=== PATIENT | male | born 1935 | race Caucasian/White ===

== ENCOUNTER 2016-10-10 11:25 | Inpatient (IN) | payer MEDICARE, BC ==
[~2016-10-10] VITALS: Ht 180.3 cm; Wt 128.8 kg
[~2016-10-10 11:25] MED LIST: ASPI325T14 PO; ASPI325T17 PO; CARV6.25 PO; CARV6.252 PO; CHOL200042 PO; CIPR500T86 PO; ENAL10TA PO; ENAL1TAB5 PO; ENAL20TA PO; FLUC100T PO; FURO-80 PO; FURO40TA4 PO; GLYB2.5T2 PO; HYDR12.58 PO; KETO15CR2 TP; METF10002 PO; MULT-632 PO; POLY17PO5 PO; POTA10TA PO; POTA10TA6 PO; SIMV40TA3 PO; TAMS-14 PO; TERA5CAP3 PO; TRAZ50TA18 PO
--- NOTE | 2016-10-10 12:30 | NUR ---
ADMIT DA FROM DR SWARTZ FOR CHF, SOB NOTED WITH EXERTION.SERVED SANDWICH TRAY. BG 127 AT THIS TIME. PT SITTING ON SIDE OF BED EATING. ASSESSMENT COMPLETE CHARTED. DENIES FURTHER NEEDS AT THIS TIME.
[2016-10-10 12:42] VITALS: BP 120/71
[2016-10-10 12:58] LABS: BASOPHIL # 0.1 10^3/uL (0.0-0.1); BASOPHIL % 0.6 % (0.0-0.2); EOSINOPHIL # 0.8 10^3/uL (0.0-0.2); EOSINOPHIL % 7.6 % (0.0-5.0); HEMOGLOBIN 12.5 g/dL (13.9-16.3); LYMPHOCYTES # 1.6 10^3/uL (1.0-4.8); LYMPHOCYTES % 15.1 % (24.0-44.0); MEAN CELL HGB 31.4 pg (26-34); MEAN CELL HGB CONCENTRATION 33.2 g/dL (33-37); MEAN CORP VOLUME 94.7 fL (78-100); MEAN PLATELET VOLUME 8.8 fL (7.8-11.0); MONOCYTES # 0.8 10^3/uL (0.3-0.8); MONOCYTES % 7.5 % (5.0-12.0); NEUTROPHIL # 7.1 10^3/uL (1.8-7.7); NEUTROPHILS % 68.9 % (41.0-85.0); RED CELL DISTRIBUTION WIDTH 13.6 % (11.5-14.5); WHITE BLOOD CELL 10.3 10^3/uL (4.5-11.0)
[2016-10-10] MEDS ORDERED: NORCO 5MG PO PRN (13:00)
[2016-10-10] MEDS ORDERED: LASIX IV ONE ×3 (13:00)
[2016-10-10] MEDS ORDERED: NS IV ONE ×2 (13:00)
--- NOTE | 2016-10-10 14:09 | DIREP ---
PROCEDURE:CHEST 1 VIEW COMPARISON:[facility], CR, XRAY CHEST SINGLE VW, 03/02/2016, 12:42 PM. INDICATIONS:SOB FINDINGS: LUNGS/PLEURA:Apices are obscured by the patient's chin. Mild interstitial thickening bilaterally. Bilateral small effusions. VASCULATURE:Normal. Unremarkable pulmonary vasculature. CARDIAC:Normal. No cardiac silhouette abnormality or cardiomegaly. MEDIASTINUM:Atherosclerotic aorta with no visible aneurysm. BONES:Normal. No fracture or visible bony lesion. OTHER:Negative. CONCLUSION:Mild volume overload pattern. Correlate with clinical findings. Dictated by: Justino Ramos M.D. on 10/10/2016 at 02:20 PM
[2016-10-10] MEDS: LOVENOX SQ SCH (14:42)
--- NOTE | 2016-10-10 14:43 | NUR ---
STATUS SITTING ON SIDE OF BED READING, EDUCATED PT ON ENOXAPARIN. ALSO GAVE PT WRITTEN EDUCATION.
--- NOTE | 2016-10-10 15:12 | NUR ---
MEDICATIONS PT STATES HE DOES NOT KNOW WHAT LIST OF MEDICATIONS HE TAKES BUT I HAVE PERMISSION TO CONTACT RENEE TO GET THAT LIST.
[2016-10-10] MEDS ORDERED: POLY17PO5 PO (15:25)
[2016-10-10 16:04] VITALS: BP 113/68
--- NOTE | 2016-10-10 18:58 | NUR ---
Report REPORT GIVEN [facility]
[2016-10-10 19:44] VITALS: BP 113/66
[2016-10-10] MEDS ORDERED: AMBIEN PO PRN (21:00)
[2016-10-10] MEDS: PEPCID PO SCH (21:02)
--- NOTE | 2016-10-10 22:36 | NUR ---
O2 PER NC AT 2l GIVEN , PT C/O SOB WHEN LYING BACK
[2016-10-11 00:33] VITALS: BP 119/66
[2016-10-11] MEDS ORDERED: TERA5CAP3 PO (02:14)
[2016-10-11 04:08] VITALS: BP 114/77
[2016-10-11 05:54] LABS: BILIRUBIN,URINE NEGATIVE (NEGATIVE); UROBILINOGEN,URINE NORMAL (NEGATIVE)
[2016-10-11 05:56] LABS: APPEARANCE,URINE CLEAR (CLEAR); UA COLOR YELLOW (YELLOW)
[2016-10-11 08:54] VITALS: BP 134/64
[2016-10-11] MEDS: LOVENOX SQ SCH (09:17)
[2016-10-11] MEDS: PEPCID PO SCH ×2 (09:17→20:37)
--- NOTE | 2016-10-11 09:21 | NUR ---
DISCHARGE PLANNING: SS VISITED WITH PT REGARDING DISCHARGE PLANNING. PT LIVES HOME ALONE DUE TO BEING A . PT USES A CANE TO ASSIST WITH AMBULATION, BUT HAS A WALKER IN THE HOME HE COULD USE IF HE NEEDED TO. PT HAS BEEN VERY INDEPENDENT AND DENIES NEEDING ADDITIONAL RESOURCES AT THIS TIME. SS PROVIDED EDUCATION REGARDING HH AND THEIR SCIENTIFIC PROCESS OPERATOR PROGRAMS. PT AT THIS TIME DOES NOT THINK HH WOULD BE BENEFICIAL. VERBAL REFUSAL GIVEN. PT SAFETY HANDOUT ADDRESSED, NO QUESTIONS ASKED, UNDERSTANDING VERBALIZED. SS TO CONTINUE TO MONITOR AND ASSIST WITH DISCHARGE PLANNING NEEDS. NO FURTHER NEEDS NOTED OR IDENTIFIED AT THIS TIME.
[2016-10-11] MEDS ORDERED: LASIX IV ONE (11:00)
[2016-10-11] MEDS ORDERED: NS IV ONE (11:00)
--- NOTE | 2016-10-11 11:13 | NUR ---
PT IN BED AT THIS TIME. PT DOES NOT C/O PAIN OR DISCOMFORT AT THIS TIME. LASIX DRIP TO BE STARTED
[2016-10-11] MEDS ORDERED: NS 250ML 250 ML IV ONE (11:56)
[2016-10-11] MEDS ORDERED: NS 250ML 250 ML ONE (11:58)
[2016-10-11 12:38] VITALS: BP 127/73
--- NOTE | 2016-10-11 13:12 | PRM.PN ---
Subjective Subjective Subjective Patient presented to the office 10/10 with a 25-pound weight gain over the last month. He reported orthopnea and progressive lower extremity edema as well as truncal edema. He reports being short of breath with inability to sleep for last five days. He is in acute decompensation of chronic congestive heart failure, with a known history of non-ischemic cardiomyopathy. Patient History: FH: breast cancer G8 SISTER No known health problems VTE VTE Risk Total Score: 4 VTE Risk Score VTE Risk: Score 0-1 = Low Risk (Aggressive mobilization; early ambulation; no VTE prophylaxis required) Score 2: Moderate Risk (Intermittent/Pneumatic Compression Device OR Lovenox/Heparin/Coumadin) Score 3-4: High Risk (Intermittent/Pneumatic Compression Device AND Lovenox/Heparin/Coumadin) Score > or =5: Highest Risk (Intermittent/Pneumatic Compression Device AND Lovenox/Heparin/Coumadin) Review of Systems Constitutional: No: Fever, Chills, Sweats, Weakness, Malaise, Other Eyes: No: Pain, Vision change, Conjunctivae inflammation, Eyelid inflammation, Other, Redness ENT: No: Ear pain, Ear discharge, Nose pain, Nose discharge, Nose congestion, Mouth pain, Mouth swelling, Throat pain, Throat swelling, Other Respiratory: Shortness of breath, SOB with excertion Cardiovascular: Orthopnea, Paroxysmal Noc. Dyspnea, Edema Gastrointestinal: Other (abdominal distention) Genitourinary: No Dysuria, No Frequency, No Incontinence, No Hematuria, No Retention, No Other Musculoskeletal: other (+2 lower extremity edema.) Allergies: Coded Allergies: No Known Drug Allergies (Verified Allergy, Mild, 12/10/15) Scheduled Aspirin (Aspirin Ec), 1 TAB PO DAILY, (Reported) Carvedilol (Carvedilol), 1 TAB PO BID, (Reported) Cholecalciferol (Vitamin D3) (D3-2000), 2,000 UNIT PO DAILY, (Reported) Furosemide (Lasix), 1 TAB PO DAILY, (Reported) Glyburide (Glyburide), 1 TAB PO DAILY, (Reported) Metformin Hcl (Metformin Hcl), 1 TAB PO BID, (Reported) Multivitamin (Multi Vitamin Daily), 1 EACH PO DAILY, (Reported) Polyethylene Glycol 3350 (Miralax), 1 PKT PO DAILY, (Reported) Potassium Chloride (K-Tab), 10 MEQ PO DAILY, (Reported) Terazosin Hcl (Terazosin Hcl), 5 MG PO HS, (Reported) Trazodone Hcl (Trazodone Hcl), 1 TAB PO HS, (Reported) Scheduled PRN Enalapril Maleate (Enalapril Maleate), 1 TAB PO DAILY PRN for HYPERTENSION, ( Reported) Discontinued Medications Simvastatin (Simvastatin), 1.5 TAB PO BIDAC, (Reported) Discontinued Reason: No Longer Taking Terazosin Hcl (Terazosin Hcl), 1 CAP PO HS, (Reported) Discontinued Reason: No Longer Taking Objective Vitals and I/O Vital Sign - Last 24 Hours 10/10/16 10/10/16 10/10/16 10/11/16 16:04 19:44 19:50 00:33 Temp 97.6 97.6 97.7 Pulse 70 62 67 Resp 18 18 18 B/P (MAP) 113/68 (83) 113/66 (82) 119/66 (83) Pulse Ox 96 97 97 O2 Delivery Room Air Room Air Room Air Room Air 10/11/16 10/11/16 10/11/16 10/11/16 04:08 08:54 09:20 09:30 Temp 97.6 97.6 Pulse 72 83 83 Resp 18 16 17 B/P (MAP) 114/77 (89) 134/64 (87) Pulse Ox 97 97 97 O2 Delivery Room Air Nasal [place] Room Air Nasal Cannula O2 Flow Rate 2.00 FiO2 28 10/11/16 10/11/16 11:54 12:38 Temp 97.6 Pulse 71 Resp 16 B/P (MAP) 134/64 127/73 (91) Pulse Ox 99 O2 Delivery Nasal [place] Intake and Output 10/10/16 10/10/16 10/11/16 15:00 23:00 07:00 Intake Total 340 ml Output Total 500 ml 600 ml Balance 340 ml -500 ml -600 ml Medication Reconciliation Scheduled Aspirin (Aspirin Ec), 1 TAB PO DAILY, (Reported) Carvedilol (Carvedilol), 1 TAB PO BID, (Reported) Cholecalciferol (Vitamin D3) (D3-2000), 2,000 UNIT PO DAILY, (Reported) Furosemide (Lasix), 1 TAB PO DAILY, (Reported) Glyburide (Glyburide), 1 TAB PO DAILY, (Reported) Metformin Hcl (Metformin Hcl), 1 TAB PO BID, (Reported) Multivitamin (Multi Vitamin Daily), 1 EACH PO DAILY, (Reported) Polyethylene Glycol 3350 (Miralax), 1 PKT PO DAILY, (Reported) Potassium Chloride (K-Tab), 10 MEQ PO DAILY, (Reported) Terazosin Hcl (Terazosin Hcl), 5 MG PO HS, (Reported) Trazodone Hcl (Trazodone Hcl), 1 TAB PO HS, (Reported) Scheduled PRN Enalapril Maleate (Enalapril Maleate), 1 TAB PO DAILY PRN for HYPERTENSION, ( Reported) Discontinued Medications Simvastatin (Simvastatin), 1.5 TAB PO BIDAC, (Reported) Discontinued Reason: No Longer Taking Terazosin Hcl (Terazosin Hcl), 1 CAP PO HS, (Reported) Discontinued Reason: No Longer Taking Assessment/Plan Assessment/Plan Assessment/Plan Acute on chronic systolic congestive heart failure Left ventricular failure Cardiomyopathy Essential hypertension - controlled on medication Hyperlipidemia Sleep apnea Type 2 diabetes mellitus. Has decrease in truncal edema and lower extremity edema, but there is no original nursing notes with weight for trend before today. TX: Lasix drip 60 mg in 100 ml over 10 hours. Continue other medications as before. Continue admission 24 hours. Follow Problems: Patient History: FH: breast cancer G8 SISTER No known health problems FE PERKINS NP Oct 11, 2016 13:12
[2016-10-11 16:17] VITALS: BP 124/77
--- NOTE | 2016-10-11 19:22 | NUR ---
REPORT REPORT GIVEN TO ONCOMING SHIFT
[2016-10-11 20:21] VITALS: BP 112/72
[2016-10-12 00:29] VITALS: BP 137/88
[2016-10-12 04:27] VITALS: BP 119/80
[2016-10-12 06:10] LABS: CALCIUM 9.3 mg/dL (8.4-10.5); CARBON DIOXIDE 28.4 mmol/L (20.0-32)
--- NOTE | 2016-10-12 06:30 | NUR ---
Report Received report and assumed care of pt
[2016-10-12 08:00] VITALS: BP 127/66
--- NOTE | 2016-10-12 08:20 | NUR ---
Dr. Silvina Cool at bedside. New orders received.
[2016-10-12] MEDS: LOVENOX SQ SCH (09:00)
[2016-10-12] MEDS: PEPCID PO SCH (09:00)
[2016-10-12] MEDS ORDERED: ASPI81TA52 PO (09:38)
[2016-10-12] MEDS ORDERED: TICA90TA PO (09:38)
--- NOTE | 2016-10-12 10:29 | PRM.DC ---
Discharge Summary Date of Arrival on Unit: Oct 12, 2015 Reason for Visit: Acute decompensation of congestive heart failure Additional Comments Admitted via the office on 10/10 with a 25-pound weight gain over a month, orthopnea, lower extremity and truncal edema. Patient History: FH: breast cancer G8 SISTER No known health problems History Present Illness: General: Alert, Oriented X3, Cooperative, No acute distress Lungs: Clear to auscultation Neuro: Normal gait, Normal speech, Normal tone Psych/Mental Status: Mental status NL, Mood NL Scheduled Aspirin (Aspirin Ec), 1 TAB PO DAILY, (Reported) Aspirin (Aspir-Low), 81 MG PO DAILY Carvedilol (Carvedilol), 1 TAB PO BID, (Reported) Cholecalciferol (Vitamin D3) (D3-2000), 2,000 UNIT PO DAILY, (Reported) Furosemide (Lasix), 1 TAB PO DAILY, (Reported) Glyburide (Glyburide), 1 TAB PO DAILY, (Reported) Metformin Hcl (Metformin Hcl), 1 TAB PO BID, (Reported) Multivitamin (Multi Vitamin Daily), 1 EACH PO DAILY, (Reported) Polyethylene Glycol 3350 (Miralax), 1 PKT PO DAILY, (Reported) Potassium Chloride (K-Tab), 10 MEQ PO DAILY, (Reported) Terazosin Hcl (Terazosin Hcl), 5 MG PO HS, (Reported) Ticagrelor (Brilinta), 90 MG PO BID Trazodone Hcl (Trazodone Hcl), 1 TAB PO HS, (Reported) Scheduled PRN Enalapril Maleate (Enalapril Maleate), 1 TAB PO DAILY PRN for HYPERTENSION, ( Reported) Discontinued Medications Simvastatin (Simvastatin), 1.5 TAB PO BIDAC, (Reported) Discontinued Reason: No Longer Taking Terazosin Hcl (Terazosin Hcl), 1 CAP PO HS, (Reported) Discontinued Reason: No Longer Taking Sepsis Evaluation @ Discharge Course Blood Pressure Systolic: 119 Blood Pressure Diastolic: 80 Blood Pressure Mean: 93 Notes Patient received several days' treatment with Lasix to diurese; patient has lost about 4 pounds, but his distal and central edema is significantly reduced, lungs are clear. Plan Problems: (1) Congestive heart failure (CHF) Permanent Comment: Acute on chronic systolic congestive heart failure Left ventricular failure Cardiomyopathy Essential hypertension - controlled on medication Last Edited By: Fe Rothman NP on Oct 12, 2016 10:27 Onset Date: ~ 09/20/2016 Status: Acute SNOMED: 49007348 Assessment & Plan: Continue Lasix 40 mg and potassium at home. Dicharge DX: Acute on chronic systolic congestive heart failure Discharge Disposition: Stable Problem Qualifiers (1) Congestive heart failure (CHF): Congestive heart failure type: systolic Congestive heart failure chronicity: acute on chronic Qualified Codes: I50.23 - Acute on chronic systolic ( congestive) heart failure FE ROTHMAN NP Oct 12, 2016 10:29
--- NOTE | 2016-10-12 10:32 | PRM.DC ---
Discharge Summary Date of Arrival on Unit: Oct 12, 2015 Reason for Visit: Acute decompensation of congestive heart failure Patient History: FH: breast cancer G8 SISTER No known health problems History Present Illness: General: Alert, Oriented X3, Cooperative HEENT: Atraumatic Neck: Supple Lungs: Clear to auscultation Heart: Regular rate Skin: No breakdown Neuro: Normal speech Psych/Mental Status: Mental status NL Scheduled Aspirin (Aspirin Ec), 1 TAB PO DAILY, (Reported) Carvedilol (Carvedilol), 1 TAB PO BID, (Reported) Cholecalciferol (Vitamin D3) (D3-2000), 2,000 UNIT PO DAILY, (Reported) Furosemide (Lasix), 1 TAB PO DAILY, (Reported) Glyburide (Glyburide), 1 TAB PO DAILY, (Reported) Metformin Hcl (Metformin Hcl), 1 TAB PO BID, (Reported) Multivitamin (Multi Vitamin Daily), 1 EACH PO DAILY, (Reported) Polyethylene Glycol 3350 (Miralax), 1 PKT PO DAILY, (Reported) Potassium Chloride (K-Tab), 10 MEQ PO DAILY, (Reported) Terazosin Hcl (Terazosin Hcl), 5 MG PO HS, (Reported) Trazodone Hcl (Trazodone Hcl), 1 TAB PO HS, (Reported) Scheduled PRN Enalapril Maleate (Enalapril Maleate), 1 TAB PO DAILY PRN for HYPERTENSION, ( Reported) Discontinued Medications Simvastatin (Simvastatin), 1.5 TAB PO BIDAC, (Reported) Discontinued Reason: No Longer Taking Terazosin Hcl (Terazosin Hcl), 1 CAP PO HS, (Reported) Discontinued Reason: No Longer Taking Sepsis Evaluation @ Discharge Course Blood Pressure Systolic: 119 Blood Pressure Diastolic: 80 Blood Pressure Mean: 93 FE PERKINS NP Oct 12, 2016 10:32
--- NOTE | 2016-10-12 11:10 | NUR ---
Discharge Discharge instructions given to pt. Educated pt on fluid restriction. Pt able to verbalize understanding. Educated pt on importance of follow up appt with . Pt able to verbalize understanding. Answered all pt questions. Pt denies further questions or concerns. Transferred pt off unit via wheelchair to personal vehicle. No s/s of distress noted.
--- NOTE | 2016-10-14 15:22 | ECHO ---
DATE OF SERVICE: 10/11/2016 INDICATIONS: A 80-year-old gentleman with acute decompensation of systolic heart failure. An echocardiographic study was requested to further evaluate any worsening of the systolic or diastolic function and any other structural or valvular heart disease. FINDINGS: 1. Study quality was impaired by morbid obesity and poor acoustic windows. 2. The underlying rhythm is sinus rhythm. 3. 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 Overall, EF is around 35%. The LV cavity is dilated with end-diastolic dimension of 6.6 cm. The rest of the myocardial [place] were suboptimally seen. 4. RV size and EF were normal. 5. Atrial size was increased significantly. 6. Right atrium was severely dilated. 7. Valvular structures were suboptimally visualized. I could not evaluate the mitral valve properly for mitral valvular lesion, especially in the presence of the calcified hyperechoic mass in the LV cavity. 8. No visible pericardial effusion. 9. Aortic valve was not well visualized. RECOMMENDATION: Transesophageal echocardiogram may be recommended and/or other modality of myocardial imaging that might include magnetic resonance cardiac imaging for further evaluation of the hyperechoic density and the dilated cavities. Oneida Cool MD DR: LEATHA/jay JOB# [id number]
--- NOTE | 2016-11-12 11:39 | PRM.DC ---
Discharge Summary Date of Arrival on Unit: Oct 12, 2015 Reason for Visit: Acute decompensation of congestive heart failure Additional Comments 10/12/2016 Patient History: FH: breast cancer G8 SISTER No known health problems History Present Illness: Scheduled Aspirin (Aspirin Ec), 1 TAB PO DAILY, (Reported) Carvedilol (Carvedilol), 1 TAB PO BID, (Reported) Cholecalciferol (Vitamin D3) (D3-2000), 2,000 UNIT PO DAILY, (Reported) Furosemide (Lasix), 1 TAB PO DAILY, (Reported) Glyburide (Glyburide), 1 TAB PO DAILY, (Reported) Metformin Hcl (Metformin Hcl), 1 TAB PO BID, (Reported) Multivitamin (Multi Vitamin Daily), 1 EACH PO DAILY, (Reported) Polyethylene Glycol 3350 (Miralax), 1 PKT PO DAILY, (Reported) Potassium Chloride (K-Tab), 10 MEQ PO DAILY, (Reported) Terazosin Hcl (Terazosin Hcl), 5 MG PO HS, (Reported) Trazodone Hcl (Trazodone Hcl), 1 TAB PO HS, (Reported) Scheduled PRN Enalapril Maleate (Enalapril Maleate), 1 TAB PO DAILY PRN for HYPERTENSION, ( Reported) Sepsis Evaluation @ Discharge Course Blood Pressure Systolic: 127 Blood Pressure Diastolic: 66 Blood Pressure Mean: 86 Plan Plan Discharge Summary Date of Arrival on Unit: Oct 12, 2015 Reason for Visit: Acute decompensation of congestive heart failure Additional Comments Admitted via the office on 10/10 with a 25-pound weight gain over a month, orthopnea, lower extremity and truncal edema. Patient History: FH: breast cancer G8 SISTER No known health problems History Present Illness: General: Alert, Oriented X3, Cooperative, No acute distress Lungs: Clear to auscultation Neuro: Normal gait, Normal speech, Normal tone Psych/Mental Status: Mental status NL, Mood NL Scheduled Aspirin (Aspirin Ec), 1 TAB PO DAILY, (Reported) Aspirin (Aspir-Low), 81 MG PO DAILY Carvedilol (Carvedilol), 1 TAB PO BID, (Reported) Cholecalciferol (Vitamin D3) (D3-2000), 2,000 UNIT PO DAILY, (Reported) Furosemide (Lasix), 1 TAB PO DAILY, (Reported) Glyburide (Glyburide), 1 TAB PO DAILY, (Reported) Metformin Hcl (Metformin Hcl), 1 TAB PO BID, (Reported) Multivitamin (Multi Vitamin Daily), 1 EACH PO DAILY, (Reported) Polyethylene Glycol 3350 (Miralax), 1 PKT PO DAILY, (Reported) Potassium Chloride (K-Tab), 10 MEQ PO DAILY, (Reported) Terazosin Hcl (Terazosin Hcl), 5 MG PO HS, (Reported) Ticagrelor (Brilinta), 90 MG PO BID Trazodone Hcl (Trazodone Hcl), 1 TAB PO HS, (Reported) Scheduled PRN Enalapril Maleate (Enalapril Maleate), 1 TAB PO DAILY PRN for HYPERTENSION, ( Reported) Discontinued Medications Simvastatin (Simvastatin), 1.5 TAB PO BIDAC, (Reported) Discontinued Reason: No Longer Taking Terazosin Hcl (Terazosin Hcl), 1 CAP PO HS, (Reported) Discontinued Reason: No Longer Taking Sepsis Evaluation @ Discharge Course Blood Pressure Systolic: 119 Blood Pressure Diastolic: 80 Blood Pressure Mean: 93 Notes Patient received several days' treatment with Lasix to diurese; patient has lost about 4 pounds, but his distal and central edema is significantly reduced, lungs are clear. Plan Problems: (1) Congestive heart failure (CHF) Permanent Comment: Acute on chronic systolic congestive heart failure Left ventricular failure Cardiomyopathy Essential hypertension - controlled on medication Onset Date: ~ 09/20/2016 Status: Acute SNOMED: [id number] Assessment & Plan: Continue Lasix 40 mg and potassium at home. Dicharge DX: Acute on chronic systolic congestive heart failure Discharge Disposition: Stable Problem Qualifiers (1) Congestive heart failure (CHF): Congestive heart failure type: systolic Congestive heart failure chronicity: acute on chronic Qualified Codes: I50.23 - Acute on chronic systolic ( congestive) heart failure KENDRICK SWARTZ MD Nov 12, 2016 11:39
--- NOTE | 2016-11-12 11:41 | PRM.PN ---
Subjective Subjective Subjective 10/11/2016 Patient History: FH: breast cancer G8 SISTER No known health problems VTE VTE Risk Total Score: 4 VTE Risk Score VTE Risk: Score 0-1 = Low Risk (Aggressive mobilization; early ambulation; no VTE prophylaxis required) Score 2: Moderate Risk (Intermittent/Pneumatic Compression Device OR Lovenox/Heparin/Coumadin) Score 3-4: High Risk (Intermittent/Pneumatic Compression Device AND Lovenox/Heparin/Coumadin) Score > or =5: Highest Risk (Intermittent/Pneumatic Compression Device AND Lovenox/Heparin/Coumadin) Review of Systems Constitutional: No: Fever, Chills, Sweats, Weakness, Malaise, Other Eyes: No: Pain, Vision change, Conjunctivae inflammation, Eyelid inflammation, Other, Redness ENT: No: Ear pain, Ear discharge, Nose pain, Nose discharge, Nose congestion, Mouth pain, Mouth swelling, Throat pain, Throat swelling, Other Respiratory: Shortness of breath, SOB with excertion Cardiovascular: Orthopnea, Paroxysmal Noc. Dyspnea, Edema Gastrointestinal: Other Genitourinary: No Dysuria, No Frequency, No Incontinence, No Hematuria, No Retention, No Other Musculoskeletal: other Allergies: Coded Allergies: No Known Drug Allergies (Verified Allergy, Mild, 12/10/15) Scheduled Aspirin (Aspirin Ec), 1 TAB PO DAILY, (Reported) Carvedilol (Carvedilol), 1 TAB PO BID, (Reported) Cholecalciferol (Vitamin D3) (D3-2000), 2,000 UNIT PO DAILY, (Reported) Furosemide (Lasix), 1 TAB PO DAILY, (Reported) Glyburide (Glyburide), 1 TAB PO DAILY, (Reported) Metformin Hcl (Metformin Hcl), 1 TAB PO BID, (Reported) Multivitamin (Multi Vitamin Daily), 1 EACH PO DAILY, (Reported) Polyethylene Glycol 3350 (Miralax), 1 PKT PO DAILY, (Reported) Potassium Chloride (K-Tab), 10 MEQ PO DAILY, (Reported) Terazosin Hcl (Terazosin Hcl), 5 MG PO HS, (Reported) Trazodone Hcl (Trazodone Hcl), 1 TAB PO HS, (Reported) Scheduled PRN Enalapril Maleate (Enalapril Maleate), 1 TAB PO DAILY PRN for HYPERTENSION, ( Reported) Objective Medication Reconciliation Scheduled Aspirin (Aspirin Ec), 1 TAB PO DAILY, (Reported) Carvedilol (Carvedilol), 1 TAB PO BID, (Reported) Cholecalciferol (Vitamin D3) (D3-2000), 2,000 UNIT PO DAILY, (Reported) Furosemide (Lasix), 1 TAB PO DAILY, (Reported) Glyburide (Glyburide), 1 TAB PO DAILY, (Reported) Metformin Hcl (Metformin Hcl), 1 TAB PO BID, (Reported) Multivitamin (Multi Vitamin Daily), 1 EACH PO DAILY, (Reported) Polyethylene Glycol 3350 (Miralax), 1 PKT PO DAILY, (Reported) Potassium Chloride (K-Tab), 10 MEQ PO DAILY, (Reported) Terazosin Hcl (Terazosin Hcl), 5 MG PO HS, (Reported) Trazodone Hcl (Trazodone Hcl), 1 TAB PO HS, (Reported) Scheduled PRN Enalapril Maleate (Enalapril Maleate), 1 TAB PO DAILY PRN for HYPERTENSION, ( Reported) Assessment/Plan Assessment/Plan Patient History: FH: breast cancer G8 SISTER No known health problems Plan Subjective Subjective Subjective Subjective Patient presented to the office 10/10 with a 25-pound weight gain over the last month. He reported orthopnea and progressive lower extremity edema as well as truncal edema. He reports being short of breath with inability to sleep for last five days. He is in acute decompensation of chronic congestive heart failure, with a known history of non-ischemic cardiomyopathy. Patient History: FH: breast cancer G8 SISTER No known health problems VTE AT RISK VTE VTE Risk Total Score: 4 VTE Risk Score VTE Risk: Score 0-1 = Low Risk (Aggressive mobilization; early ambulation; no VTE prophylaxis required) Score 2: Moderate Risk (Intermittent/Pneumatic Compression Device OR Lovenox/Heparin/Coumadin) Score 3-4: High Risk (Intermittent/Pneumatic Compression Device AND Lovenox/Heparin/Coumadin) Score > or =5: Highest Risk (Intermittent/Pneumatic Compression Device AND Lovenox/Heparin/Coumadin) Review of Systems Review of Systems Constitutional: No: Fever, Chills, Sweats, Weakness, Malaise, Other Eyes: No: Pain, Vision change, Conjunctivae inflammation, Eyelid inflammation, Other, Redness ENT: No: Ear pain, Ear discharge, Nose pain, Nose discharge, Nose congestion, Mouth pain, Mouth swelling, Throat pain, Throat swelling, Other Respiratory: Shortness of breath, SOB with excertion Cardiovascular: Orthopnea, Paroxysmal Noc. Dyspnea, Edema Gastrointestinal: Other (abdominal distention) Genitourinary: No Dysuria, No Frequency, No Incontinence, No Hematuria, No Retention, No Other Musculoskeletal: other (+2 lower extremity edema.) Allergies: Coded Allergies: No Known Drug Allergies (Verified Allergy, Mild, 12/10/15) Scheduled Aspirin (Aspirin Ec), 1 TAB PO DAILY, (Reported) Carvedilol (Carvedilol), 1 TAB PO BID, (Reported) Cholecalciferol (Vitamin D3) (D3-2000), 2,000 UNIT PO DAILY, (Reported) Furosemide (Lasix), 1 TAB PO DAILY, (Reported) Glyburide (Glyburide), 1 TAB PO DAILY, (Reported) Metformin Hcl (Metformin Hcl), 1 TAB PO BID, (Reported) Multivitamin (Multi Vitamin Daily), 1 EACH PO DAILY, (Reported) Polyethylene Glycol 3350 (Miralax), 1 PKT PO DAILY, (Reported) Potassium Chloride (K-Tab), 10 MEQ PO DAILY, (Reported) Terazosin Hcl (Terazosin Hcl), 5 MG PO HS, (Reported) Trazodone Hcl (Trazodone Hcl), 1 TAB PO HS, (Reported) Scheduled PRN Enalapril Maleate (Enalapril Maleate), 1 TAB PO DAILY PRN for HYPERTENSION, ( Reported) Discontinued Medications Simvastatin (Simvastatin), 1.5 TAB PO BIDAC, (Reported) Discontinued Reason: No Longer Taking Terazosin Hcl (Terazosin Hcl), 1 CAP PO HS, (Reported) Discontinued Reason: No Longer Taking Objective Objective Vitals and I/O Vital Sign - Last 24 Hours 10/10/16 10/10/16 10/10/16 10/11/16 16:04 19:44 19:50 00:33 Temp 97.6 97.6 97.7 Pulse 70 62 67 Resp 18 18 18 B/P (MAP) 113/68 (83) 113/66 (82) 119/66 (83) Pulse Ox 96 97 97 O2 Delivery Room Air Room Air Room Air Room Air 10/11/16 10/11/16 10/11/1622/17 04:08 08:54 09:20 09:30 Temp 97.6 97.6 Pulse 72 83 83 Resp 18 16 17 B/P (MAP) 114/77 (89) 134/64 (87) Pulse Ox 97 97 97 O2 Delivery Room Air Nasal [place] Room Air Nasal Cannula O2 Flow Rate 2.00 FiO2 28 10/11/16 10/11/16 11:54 12:38 Temp 97.6 Pulse 71 Resp 16 B/P (MAP) 134/64 127/73 (91) Pulse Ox 99 O2 Delivery Nasal [place] Intake and Output 10/10/16 10/10/16 10/11/16 15:00 23:00 07:00 Intake Total 340 ml Output Total 500 ml 600 ml Balance 340 ml -500 ml -600 ml Medication Reconciliation Scheduled Aspirin (Aspirin Ec), 1 TAB PO DAILY, (Reported) Carvedilol (Carvedilol), 1 TAB PO BID, (Reported) Cholecalciferol (Vitamin D3) (D3-2000), 2,000 UNIT PO DAILY, (Reported) Furosemide (Lasix), 1 TAB PO DAILY, (Reported) Glyburide (Glyburide), 1 TAB PO DAILY, (Reported) Metformin Hcl (Metformin Hcl), 1 TAB PO BID, (Reported) Multivitamin (Multi Vitamin Daily), 1 EACH PO DAILY, (Reported) Polyethylene Glycol 3350 (Miralax), 1 PKT PO DAILY, (Reported) Potassium Chloride (K-Tab), 10 MEQ PO DAILY, (Reported) Terazosin Hcl (Terazosin Hcl), 5 MG PO HS, (Reported) Trazodone Hcl (Trazodone Hcl), 1 TAB PO HS, (Reported) Scheduled PRN Enalapril Maleate (Enalapril Maleate), 1 TAB PO DAILY PRN for HYPERTENSION, ( Reported) Discontinued Medications Simvastatin (Simvastatin), 1.5 TAB PO BIDAC, (Reported) Discontinued Reason: No Longer Taking Terazosin Hcl (Terazosin Hcl), 1 CAP PO HS, (Reported) Discontinued Reason: No Longer Taking Dietary Evaluation Dietary Evaluation Assessment/Plan Assessment/Plan Assessment/Plan Assessment/Plan Acute on chronic systolic congestive heart failure Left ventricular failure Cardiomyopathy Essential hypertension - controlled on medication Hyperlipidemia Sleep apnea Type 2 diabetes mellitus. Has decrease in truncal edema and lower extremity edema, but there is no original nursing notes with weight for trend before today. TX: Lasix drip 60 mg in 100 ml over 10 hours. Continue other medications as before. Continue admission 24 hours. Follow Problems: Patient History: FH: breast cancer G8 SISTER No known health problems KENDRICK SWARTZ MD Nov 12, 2016 11:41
[2016-12-12] MEDS ORDERED: CHOL2000 PO (09:21)
[2016-12-12] MEDS ORDERED: SACU1TAB PO (09:21)
[2016-12-12] MEDS ORDERED: POLY17PO5 PO (09:21)
[2016-12-12] MEDS ORDERED: ASPI-484 PO (09:21)
== END 2016-10-12 11:09 | disposition home or self-care (01) | DRG 291 ==
LOC: MS 11:25 → OBSVTOIN 11:25
PROVIDERS: ADMIT Internal Medicine; ATTEND Internal Medicine
DX: I13.0 Hypertensive heart and chronic kidney disease with heart failure and stage 1 through stage 4 chronic kidney disease, or unspecified chronic kidney disease (principal); I50.23 Acute on chronic systolic (congestive) heart failure; E11.21 Type 2 diabetes mellitus with diabetic nephropathy; I42.9 Cardiomyopathy, unspecified; I50.1 Left ventricular failure, unspecified; E11.9 Type 2 diabetes mellitus without complications; G47.00 Insomnia, unspecified; E78.5 Hyperlipidemia, unspecified; G47.30 Sleep apnea, unspecified; Z79.82 Long term (current) use of aspirin; Z80.3 Family history of malignant neoplasm of breast; E11.22 Type 2 diabetes mellitus with diabetic chronic kidney disease; N18.2 Chronic kidney disease, stage 2 (mild)
CPT/HCPCS: 36415; 71010; 80048; 80061; 81002; 82553; 82948; 83880; 84443; 85025; 93005; 93307; J1650; J1940; J7050

== ENCOUNTER 2016-12-13 00:34 | Inpatient (IN) | payer MEDICARE, BC ==
[2016-12-12 09:24] VITALS: BP 120/74
[2016-12-12 10:02] LABS: BASOPHIL # 0.1 10^3/uL (0.0-0.1); BASOPHIL % 0.7 % (0.0-0.2); EOSINOPHIL # 0.6 10^3/uL (0.0-0.2); EOSINOPHIL % 7.8 % (0.0-5.0); HEMOGLOBIN 13.6 g/dL (13.9-16.3); LYMPHOCYTES # 1.4 10^3/uL (1.0-4.8); LYMPHOCYTES % 18.5 % (24.0-44.0); MEAN CELL HGB 30.1 pg (26-34); MEAN CELL HGB CONCENTRATION 32.4 g/dL (33-37); MEAN CORP VOLUME 92.9 fL (78-100); MONOCYTES # 0.7 10^3/uL (0.3-0.8); MONOCYTES % 8.7 % (5.0-12.0); NEUTROPHIL # 4.9 10^3/uL (1.8-7.7); WHITE BLOOD CELL 7.7 10^3/uL (4.5-11.0)
[2016-12-12 10:15] LABS: CALCIUM 9.3 mg/dL (8.4-10.5); CARBON DIOXIDE 28.3 mmol/L (20.0-32)
--- NOTE | 2016-12-12 11:07 | DIREP ---
PROCEDURE:CHEST 2 VIEWS COMPARISON:[facility], CR, XRAY CHEST SINGLE VW, 10/10/2016, 01:[address] [facility], CR, XRAY CHEST SINGLE VW, 03/02/2016, 12:[address] [facility], CT, CT CHEST W/CONTRAST, 01/13/2015, 10:29 AM. INDICATIONS:PRE OP HEART CATH FINDINGS: LUNGS/PLEURA:No significant pulmonary parenchymal abnormalities. No effusions. VASCULATURE:Normal. Unremarkable pulmonary vasculature. CARDIAC:Normal cardiac size. Calcified mitral valve annulus. MEDIASTINUM:Normal. No visible mass or adenopathy. BONES:Normal. No fracture or visible bony lesion. OTHER:Negative. CONCLUSION:No active cardiopulmonary disease. Dictated by: Luis Vogel M.D. on 12/12/2016 at 11:03 AM
--- NOTE | 2016-12-12 17:18 | PCM.EKG ---
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
[~2016-12-13] VITALS: Ht 180.3 cm; Wt 118.4 kg
[~2016-12-13 00:34] MED LIST changes: +ASPI-484 PO; +ASPI81TA52 PO; +CHOL2000 PO; +SACU1TAB PO; +TICA90TA PO
[2016-12-13] MEDS ORDERED: NS 1000ML 1,000 ML ONE (06:11)
[2016-12-13] MEDS ORDERED: HEPARIN ONE ×2 (06:11→13:19)
[2016-12-13] MEDS ORDERED: SUBLIMAZE ONE (06:11)
[2016-12-13] MEDS ORDERED: CALAN ONE (06:11)
[2016-12-13] MEDS ORDERED: XYLOCAINE ONE (06:12)
[2016-12-13] MEDS ORDERED: VERSED ONE (06:12)
[2016-12-13] MEDS ORDERED: NITROGLYCERIN 25MG/D5W 250ML 250 ML IV ONE (06:12)
[2016-12-13] MEDS ORDERED: BENADRYL PO ONE (09:00)
[2016-12-13 09:54] VITALS: BP 132/73
[2016-12-13] MEDS ORDERED: ADENOSINE IV ONE (13:19)
[2016-12-13] MEDS ORDERED: DOPAMINE 400 MG/D5W 250 ML 250 ML IV ONE (13:23)
[2016-12-13] MEDS: NS 1000ML 1,000 ML IV SCH ×2 (13:48→20:26)
[2016-12-13] MEDS ORDERED: NORCO 5MG PO PRN (14:00)
--- NOTE | 2016-12-13 15:14 | PCM.EKG ---
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
--- NOTE | 2016-12-13 18:50 | NUR ---
TR band TR band removed. 4x4 gauze and tegaderm applied to site. No bleeding, redness or s/s of hematoma noted. Site soft. Bedside report given to RADHA Martin. Relinquished care of patient
[2016-12-13 19:09] VITALS: BP 110/62
--- NOTE | 2016-12-13 19:54 | [facility] ---
DATE OF SERVICE: 12/13/2016 PROCEDURES PERFORMED: 1. Left heart catheterization via right radial artery access. 2. Selective coronary angiography, left and right. 3. Left ventricular end-diastolic pressure measurement. 4. Left ventriculography 5. Fractional flow reserve study of the right coronary artery. 6. Adenosine infusion and Heparin infusion. COMPLICATIONS: Post-catheterization hypotension requiring observation. BLOOD LOSS: Minimal, less than 15 mL INDICATIONS: 1. Established history of cardiomyopathy. 2. Left bundle branch block. 3. Multiple recent hospitalizations for LV dysfunction and acute decompensation of systolic heart failure. 4. Morbid obesity, which stands against noninvasive testing. 5. Stage 2 NYHA class angina and CHF symptoms. HISTORY OF THE PRESENTING ILLNESS: The patient is an 81-year-old gentleman with morbid obesity, hypertension, hyperlipidemia, and cardiomyopathy, who was hospitalized recently, over the last 3 months, twice, to the hospital for LV dysfunction. He reported progressive NYHA Class 2 symptoms of angina and CHF, left bundle branch block noted on EKG, and therefore, the patient was elected for a coronary angiography and a possible intervention based on the patient's current symptoms and decreased LV function. OPERATIVE DETAILS: He presented to the catheterization lab in a fasting condition and signed the appropriate consent. Thy risks and benefits were explained, all questions were answered, lab results were reviewed, and allergies were verified. Creatinine of 1.5 was seen, therefore, Visipaque was used with minimal contrast exposure. The right wrist area was prepped and draped and sterilized and 1% lidocaine was used for local analgesia. A 6-[place] sheath into the right radial artery was inserted without difficulty followed by 6000 units of heparin for radial protection given intravenously. A 6-[place] catheter was utilized to engage the left and right coronary arteries, followed by an exchange for a pigtail catheter across the guidewire into the LV cavity for LVEDP measurement and power injection LV gram in the YUEN projection. A new de gee lesion was noted in the mid RCA, which was a large, dominant vessel. The angiographic assessment was around 50%. I decided to use FFR to determine the hemodynamic ischemic burden of the lesion, and therefore, another loading dose of heparin was given. ACT was monitored to be therapeutic. A 6-[place] JR4 guiding catheter was advanced over the guidewire to engage the RCA. An Aeris pressure wire was zeroed, equalized, and advanced into the RCA using heparin, which showed a resting gradient of 95%, and dropped to 90% with adenosine infusion. The patient remained asymptomatic. The blood pressure dropped significantly into 80/50. The case was concluded with termination of adenosine infusion and removal of the wire and catheter. A TR band was applied for hemostasis of the right radial artery access site. The patient tolerated the procedure well and left the catheterization lab in a stable condition. He will be observed in the medical floor for evaluation of hypotension post cardiac catheterization. HEMODYNAMICS: 1. Opening pressure 92/51 mmHg, mean 70 mmHg, closing pressure 88/50 mmHg, mean 62 mmHg. 2. LVEDP around 15 mmHg. 3. LV gram showed EF around 35% to 40%. There is a finding of calcified space-occupying mass at the apex of the heart preventing contrast from flowing into the apex. The apex is akinetic. This might reflect either a calcified trabeculated muscle or a calcified old thrombus at the apex. A gradient of less than 3 mm across the aortic valve was noted. 4. Ascending aorta was normal in size without apparent acute pathology. 5. +1 MR to +2 MR was seen. ANGIOGRAPHIC FINDINGS: 1. The right coronary artery was a large dominant vessel. Proximally, there was no disease. In the mid segment, the proximal part showed a 50% to 60% discrete lesion. The distal RCA was free of disease. The RPDA and PLV branches were large, dominant vessels with minimal disease, less than 20%. 2. The left main was free of disease, mildly calcified, large in size, normal in length. 3. The LAD was showing mild luminal irregularity around 20% proximally. The mid and distal LAD was free of disease. The diagonal branches were medium to large sized vessels, mildly tortuous, and without obstructive disease. 4. The circumflex artery was a nondominant vessel, medium in size, proximally free of disease, mid segment showed mild luminal irregularity, around 30%. The second obtuse marginal was a small vessel with an ostial lesion, around 60% to 70%, the vessel is small, non-amenable for angioplasty for an ostial lesion for a nondominant vessel. FFR study performed to the RCA using a JR4 guiding catheter with an Aeris pressure wire which was zeroed, equalized, and advanced across the RCA with heparin infusion. The resting gradient was 95% and dropped to 90%, with adenosine infusion intravenously at 145 mcg per kg per minute for 4 minutes, standard infusion protocol. IMPRESSION: 1. Moderate mid RCA disease, large dominant vessel, studied with FFR and determined to be hemodynamically insignificant. 2. Normal left main. 3. Mild LAD disease. 4. Mild circumflex artery nondominant vessel disease. 5. LV dysfunction, moderate ejection fraction, around 35% to 40%. 6. Finding of apical calcified mass. 7. Post cardiac catheterization hypotension that will require observation and hydration. RECOMMENDATIONS: 1. TR band protocol. 2. The patient will be admitted to the observation service, to receive IV fluid, monitor kidney function, and monitor further hypertension. 3. Continue medical management for nonischemic cardiomyopathy. 4. Evaluate for congestive heart failure management and therapy. 5. Outpatient followup once the patient meets discharge criteria. Oneida Cool MD DR: LEATHA/jay JOB# [id number]
[2016-12-13] MEDS ORDERED: HYTRIN PO SCH ×2 (21:00)
[2016-12-13] MEDS ORDERED: DESYREL PO SCH (21:00)
[2016-12-13] MEDS ORDERED: ZOCOR PO SCH (21:00)
[2016-12-13 23:26] VITALS: BP 99/52
[2016-12-14 02:57] VITALS: BP 105/60
[2016-12-14 06:09] VITALS: BP 98/53
[2016-12-14 06:17] LABS: BASOPHIL # 0.1 10^3/uL (0.0-0.1); BASOPHIL % 0.8 % (0.0-0.2); EOSINOPHIL # 0.5 10^3/uL (0.0-0.2); EOSINOPHIL % 6.5 % (0.0-5.0); HEMOGLOBIN 12.5 g/dL (13.9-16.3); LYMPHOCYTES # 1.7 10^3/uL (1.0-4.8); LYMPHOCYTES % 23.1 % (24.0-44.0); MEAN CELL HGB 30.3 pg (26-34); MEAN CELL HGB CONCENTRATION 32.3 g/dL (33-37); MEAN CORP VOLUME 93.7 fL (78-100); MEAN PLATELET VOLUME 8.9 fL (7.8-11.0); MONOCYTES # 0.9 10^3/uL (0.3-0.8); MONOCYTES % 11.7 % (5.0-12.0); NEUTROPHIL # 4.2 10^3/uL (1.8-7.7); NEUTROPHILS % 57.5 % (41.0-85.0); RED CELL DISTRIBUTION WIDTH 13.8 % (11.5-14.5); WHITE BLOOD CELL 7.4 10^3/uL (4.5-11.0)
[2016-12-14 06:32] LABS: CALCIUM 8.3 mg/dL (8.4-10.5); CARBON DIOXIDE 25.1 mmol/L (20.0-32)
[2016-12-14] MEDS: NS 1000ML 1,000 ML IV SCH (06:42)
[2016-12-14 07:17] VITALS: BP 108/64
[2016-12-14] MEDS ORDERED: FLOMAX PO SCH (09:00)
[2016-12-14] MEDS ORDERED: ASPIRIN EC PO SCH (09:00)
[2016-12-14] MEDS ORDERED: LASIX PO SCH (09:00)
[2016-12-14] MEDS ORDERED: DIABETA PO SCH (09:00)
[2016-12-14] MEDS ORDERED: KLOR-CON 10 PO SCH (09:00)
[2016-12-14] MEDS ORDERED: MIRALAX PO SCH (09:00)
--- NOTE | 2016-12-14 10:27 | NUR ---
DISCHARGE PLANNING: SS VISITED WITH PT REGARDING DISCHARGE PLANNING NEEDS. PT LIVES HOME WITH ALONE AND IS VERY INDEPENDENT. PT USES A WALKER TO ASSIST WITH AMBULATION. DUE TO INDEPENDENCE PT DID NOT THINK HH WOULD BE BENEFICIAL AT THIS TIME. PT SAFETY HANDOUT ADDRESSED, NO QUESTIONS ASKED, UNDERSTANDING VERBALIZED. SS TO CONTINUE TO FOLLOW AND MONITOR DISCHARGE PLANNING NEEDS.
--- NOTE | 2016-12-14 11:36 | PRM.DC ---
Discharge Summary Date of Discharge: Dec 14, 2016 Time of Request to Discharge: 11:35 Patient History: FH: breast cancer G8 SISTER No known health problems History Present Illness: General: Alert, Oriented X3, Cooperative, No acute distress Heart: Regular rate Extremities: No cyanosis Neuro: Normal speech, Normal tone Psych/Mental Status: Mental status NL, Mood NL Scheduled Aspirin (Aspirin), 1 TAB PO DAILY, (Reported) Aspirin (Aspir 81), 1 TAB PO DAILY, (Reported) Carvedilol (Carvedilol), 1 TAB PO BID, (Reported) Cholecalciferol (Vitamin D3) (Vitamin D), 1 CAP PO DAILY, (Reported) Enalapril/Hydrochlorothiazide (Enalapril-Hctz 10-25 Mg Tablet), 1 TAB PO DAILY, (Reported) Furosemide (Furosemide), 1 TAB PO DAILY, (Reported) Glyburide (Glyburide), 1 TAB PO DAILY, (Reported) Metformin Hcl (Metformin Hcl), 1 TAB PO BID, (Reported) Multivitamin (Multi Vitamin Daily), 1 EACH PO DAILY, (Reported) Polyethylene Glycol 3350 (Miralax), 1 PKT PO DAILY, (Reported) Potassium Chloride (K-Tab), 10 MEQ PO DAILY, (Reported) Sacubitril/Valsartan (Entresto 24 mg-26 mg Tablet), 1 EACH PO BID, (Reported) Simvastatin (Simvastatin), 1 TAB PO HS, (Reported) Tamsulosin Hcl (Flomax), 0.4 MG PO DAILY Terazosin Hcl (Terazosin Hcl), 5 MG PO HS, (Reported) Trazodone Hcl (Trazodone Hcl), 1 TAB PO HS, (Reported) Discontinued Medications Aspirin (Aspirin Ec), 1 TAB PO DAILY, (Reported) Discontinued Reason: Discontinue Carvedilol 6.25MG (Coreg 6.25MG), 1 TAB PO BID, (Reported) Discontinued Reason: Discontinue Cholecalciferol (Vitamin D3) (D3-2000), 2,000 UNIT PO DAILY, (Reported) Discontinued Reason: Cancel Enalapril Maleate (Enalapril Maleate), 1 TAB PO DAILY PRN for HYPERTENSION, ( Reported) Discontinued Reason: Discontinue Furosemide (Lasix), 1 TAB PO DAILY, (Reported) Discontinued Reason: Cancel Glyburide (Glyburide), 1 TAB PO DAILY, (Reported) Discontinued Reason: Cancel Metformin Hcl (Metformin Hcl), 1,000 MG PO BID, (Reported) Discontinued Reason: Cancel Multivitamin (Multi Vitamin Daily), 1 EACH PO DAILY, (Reported) Discontinued Reason: Cancel Polyethylene Glycol 3350 (Miralax), 17 GM PO HS Discontinued Reason: Cancel Polyethylene Glycol 3350 (Miralax), 1 PKT PO PRN PRN for constipation, (Reported ) Discontinued Reason: Cancel Potassium Chloride (Klor-Con 10), 1 TAB PO DAILY, (Reported) Discontinued Reason: Cancel Terazosin Hcl (Terazosin Hcl), 1 CAP PO HS, (Reported) Discontinued Reason: Cancel Trazodone Hcl (Trazodone Hcl), 1 TAB PO HS, (Reported) Discontinued Reason: Discontinue Sepsis Evaluation @ Discharge Course Blood Pressure Systolic: 108 Blood Pressure Diastolic: 64 Blood Pressure Mean: 79 Plan Problems: (1) Congestive heart failure (CHF) Permanent Comment: Acute on chronic systolic congestive heart failure Left ventricular failure Cardiomyopathy Essential hypertension - controlled on medication Last Edited By: Fe Rothman NP on Oct 12, 2016 10:27 Onset Date: ~ 09/20/2016 Status: Chronic ICD Code: I50.9 - Heart failure, unspecified SNOMED: 29261898 (2) CAD (coronary artery disease) Status: Chronic ICD Code: I25.10 - Atherosclerotic heart disease of [place] coronary artery without angina pectoris SNOMED: 71107337 Discharge Date: Dec 14, 2016 Discharge Disposition: Stable Plan IMPRESSION: 1. Moderate mid RCA disease, large dominant vessel, studied with FFR and determined to be hemodynamically insignificant. 2. Normal left main. 3. Mild LAD disease. 4. Mild circumflex artery nondominant vessel disease. 5. LV dysfunction, moderate ejection fraction, around 35% to 40%. 6. Finding of apical calcified mass. 7. Post cardiac catheterization hypotension that will require observation and hydration. RECOMMENDATIONS: 1. The patient was admitted to the observation service, to receive IV fluid, monitor kidney function, and monitor further hypertension. 2. Continue medical management for nonischemic cardiomyopathy, including all home medications 3. Follow up with Amy Rothman NP in one week, Dr. Cool in 3 - 4 weeks. Problem Qualifiers (1) Congestive heart failure (CHF): Congestive heart failure type: systolic Congestive heart failure chronicity: acute on chronic Qualified Codes: I50.23 - Acute on chronic systolic ( congestive) heart failure (2) CAD (coronary artery disease): Coronary Disease-Associated Artery/Lesion type: [place] artery [place] vs. transplanted heart: [place] heart FE ROTHMAN NP Dec 14, 2016 11:36
[2016-12-14 11:52] VITALS: BP 127/78
[2016-12-14 12:45] VITALS: BP 127/78
== END 2016-12-14 10:27 | disposition home or self-care (01) | DRG 287 ==
LOC: SDC 00:34 → MS 15:43 → EDPENDDISTM 12-14 12:45
PROVIDERS: ADMIT Internal Medicine; ATTEND Internal Medicine
PROC: 4A023N7 Measurement of Cardiac Sampling and Pressure, Left Heart, Percutaneous Approach (ICD-10-PCS; principal; 2016-12-13)
PROC: B2151ZZ Fluoroscopy of Left Heart using Low Osmolar Contrast (ICD-10-PCS; 2016-12-13)
PROC: B2111ZZ Fluoroscopy of Multiple Coronary Arteries using Low Osmolar Contrast (ICD-10-PCS; 2016-12-13)
PROC: 4A033BC Measurement of Arterial Pressure, Coronary, Percutaneous Approach (ICD-10-PCS; 2016-12-13)
PROC: 3E033PZ Introduction of Platelet Inhibitor into Peripheral Vein, Percutaneous Approach (ICD-10-PCS; 2016-12-13)
PROC: 3E033GC Introduction of Other Therapeutic Substance into Peripheral Vein, Percutaneous Approach (ICD-10-PCS; 2016-12-13)
DX: I25.119 Atherosclerotic heart disease of native coronary artery with unspecified angina pectoris (principal); I11.0 Hypertensive heart disease with heart failure; I42.9 Cardiomyopathy, unspecified; E66.01 Morbid (severe) obesity due to excess calories; I50.22 Chronic systolic (congestive) heart failure; E11.9 Type 2 diabetes mellitus without complications; I95.81 Postprocedural hypotension; H40.9 Unspecified glaucoma; I44.7 Left bundle-branch block, unspecified; N40.0 Benign prostatic hyperplasia without lower urinary tract symptoms; E78.5 Hyperlipidemia, unspecified; G47.30 Sleep apnea, unspecified; Z68.36 Body mass index [BMI] 36.0-36.9, adult; Z80.3 Family history of malignant neoplasm of breast; Z82.3 Family history of stroke; Z82.49 Family history of ischemic heart disease and other diseases of the circulatory system; Z83.49 Family history of other endocrine, nutritional and metabolic diseases; Z85.828 Personal history of other malignant neoplasm of skin; Z86.73 Personal history of transient ischemic attack (TIA), and cerebral infarction without residual deficits; Z83.1 Family history of other infectious and parasitic diseases
CPT/HCPCS: 36415; 71020; 80048; 82948; 85025; 85610; 93005; 93458; 93571; 99152; 99153; C1769; C1887; J0153; J1644; J2250; J3010; J3480; J3490; J7030; Q0163; Q9967; Q9966

== ENCOUNTER 2017-10-04 10:12 | Inpatient (IN) | payer MEDICARE, BC ==
[~2017-10-04] VITALS: Ht 180.3 cm; Wt 125.2 kg
[~2017-10-04 10:12] MED LIST changes: -METF10002 PO; +METF10003 PO
--- NOTE | 2017-10-04 10:27 | PCM.EKG ---
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
--- NOTE | 2017-10-04 10:28 | NUR ---
ARRIVAL PATIENT ARRIVED TO ED3 VIA W/C, C/O OF SHORTNESS OF BREATH FOR THE PAST WEEK, SHORTNESS OF BREATH ON EXCERTION, WORSE TODAY, CAME TO THE ED FOR FURTHER EVAL.
--- NOTE | 2017-10-04 10:29 | ER.PDOC ---
General Chief Complaint: Requesting Medical Care Stated Complaint: SWELLING,SOB Time seen by MD: 10:33 Source: patient Exam Limitations: no limitations History of Present Illness Timing/Duration: 1 week Severity: moderate Activities at Onset: activity/exertion Prior Episodes/Possible Cause: occasional episodes Modifying Factors: improves with activity, improves with lying down Associated Symptoms: edema Prior symptoms/Treatment: Similar symptoms previous Allergies: Coded Allergies: No Known Drug Allergies (Verified Allergy, Mild, 12/10/15) Home Meds Active Scripts Tamsulosin Hcl (FLOMAX) 0.4 Mg Cap.er.24h, 0.4 MG PO DAILY, #30 CAP 1 Refill Prov:LEONEL MUNGUIA MD 02/27/16 Reported Medications Aspirin (ASPIR 81) 81 Mg Tablet.dr, 1 TAB PO DAILY, #30 TAB 5 Refills 12/12/16 Cholecalciferol (Vitamin D3) (VITAMIN D) 2,000 Unit Capsule, 1 CAP PO DAILY, # 30 CAP 3 Refills 12/12/16 Sacubitril/Valsartan (Entresto 24 mg-26 mg Tablet) 1 Each Tablet, 1 EACH PO BID , TABLET 12/12/16 Terazosin Hcl (TERAZOSIN HCL) 5 Mg Capsule, 5 MG PO HS, CAPSULE 10/11/16 Polyethylene Glycol 3350 (MIRALAX) 17 Gm Powd.pack, 1 PKT PO DAILY, PKT 10/10/16 Enalapril/Hydrochlorothiazide (ENALAPRIL-HCTZ 10-25 MG TABLET) 1 Each Tablet, 1 TAB PO DAILY, #30 TAB 5 Refills 02/25/16 Aspirin (ASPIRIN) 325 Mg Tablet, 1 TAB PO DAILY, #30 TAB 5 Refills 02/25/16 Simvastatin (SIMVASTATIN) 40 Mg Tablet, 1 TAB PO HS, #90 TAB 3 Refills 02/25/16 Furosemide (FUROSEMIDE) 40 Mg Tablet, 1 TAB PO DAILY, #30 TAB 5 Refills 02/25/16 Glyburide (GLYBURIDE) 2.5 Mg Tablet, 1 TAB PO DAILY, #30 TAB 5 Refills 02/25/16 Multivitamin (Multi Vitamin Daily) 1 Each Tablet, 1 EACH PO DAILY, TABLET 12/11/15 Trazodone Hcl (TRAZODONE HCL) 50 Mg Tablet, 1 TAB PO HS, TAB 12/11/15 Potassium Chloride (K-TAB) 10 Meq Tablet.er, 10 MEQ PO DAILY 12/28/14 Metformin Hcl (METFORMIN HCL) 1,000 Mg Tablet, 1 TAB PO BID, TAB 12/26/14 Carvedilol (CARVEDILOL) 6.25 Mg Tablet, 1 TAB PO BID, TAB 12/26/14 Past Medical History Medical History: cardiac problems, congestive heart failure, COPD Family History Significant Family History: no pertinent family hx Social History Smoking: non-smoker Alcohol Use: none Drug Use: none Reviewed Nursing Reviewed: Vital Signs, Abn. Noted Review of Systems All Other Systems: Reviewed and Negative Physical Exam General Appearance: No Apparent Distress, WD/WN HEENT: PERRL/EOMI, Normal ENT Inspection, TMs Normal, Pharynx Normal Neck: Non-Tender, Full Range of Motion, Supple, Normal Inspection Respiratory: rales, retractions Cardiovascular: Normal Peripheral Pulses, Regular Rate, Rhythm, No Edema, No Gallop, No JVD, No Murmur Gastrointestinal: Normal Bowel Sounds, No Organomegaly, No Pulsatile Mass, Non Tender, Soft Extremities: Pedal Edema Neurologic/Psychiatric: core inspector II-XII NML as Tested, No Motor/Sensory Deficits, Alert, Normal Mood/Affect, Oriented x 3 Skin: Normal Color, Warm/Dry Lymphatic: No Adenopathy Results/Orders Results/Orders Laboratory Tests Test 10/04/17 10:28 White Blood Count 10.6 10^3/uL (4.5-11.0) Red Blood Count 3.70 10^6/uL (4.50-5.90) Hemoglobin 12.0 g/dL (13.9-16.3) Hematocrit 36.0 % (37.0-53.0) Mean Corpuscular Volume 97.3 fL (78-100) Mean Corpuscular Hemoglobin 32.4 pg (26-34) Mean Corpuscular Hemoglobin Concent 33.3 g/dL (33-37) Red Cell Distribution Width 13.7 % (11.5-14.5) Platelet Count 229 10^3/uL (150-400) Mean Platelet Volume 9.0 fL (7.8-11.0) Neutrophils (%) (Auto) 81.2 % (41.0-85.0) Lymphocytes (%) (Auto) 8.9 % (24.0-44.0) Monocytes (%) (Auto) 7.1 % (5.0-12.0) Neutrophils # (Auto) 8.6 10^3/uL (1.8-7.7) Lymphocytes # (Auto) 0.9 10^3/uL (1.0-4.8) Monocytes # (Auto) 0.8 10^3/uL (0.3-0.8) Absolute Immature Granulocyte (auto 0.02 10^3 u/L (0-2) Eosinophils % 2.2 % (0.0-5.0) Basophils % 0.4 % (0.0-0.2) Basophils # 0.0 10^3/uL (0.0-0.1) Eosinophil Count 0.2 10^3/uL (0.0-0.2) Prothrombin Time 10.8 SEC (9.8-11.9) Prothrombin Time INR (Non-Therap) 1.1 Activated Partial Thromboplast Time 28.4 SEC (24.67-30.72) D-Dimer 1.54 mg/L (0.19-0.49) Sodium Level 137 mmol/L (132-145) Potassium Level 4.5 mmol/L (3.6-5.2) Chloride Level 101.0 mmol/L (96-109) Carbon Dioxide Level 23.3 mmol/L (20.0-32) Anion Gap 17.2 Blood Urea Nitrogen 41 mg/dL (7-18) Creatinine 1.64 mg/dL (0.59-1.40) Estimated GFR () 49.2 (>/=60) BUN/Creatinine Ratio 25.0 Glucose Level 158 mg/dL (70-110) Calcium Level 9.3 mg/dL (8.4-10.5) Total Bilirubin 0.9 mg/dL (0.2-1.0) Aspartate Amino Transf (AST/SGOT) 16 U/L (0-35) Alanine Aminotransferase (ALT/SGPT) 22 U/L (12-78) Alkaline Phosphatase 51 U/L (50-136) Total Creatine Kinase 75 U/L (39-308) Creatine Kinase MB 0.7 ng/mL (0.5-3.6) Troponin I < 0.02 ng/mL (0.00-0.05) Pro-B-Type Natriuretic Peptide 1852 pg/mL (0-450) Total Protein 7.7 g/dL (6.4-8.2) Albumin 3.5 g/dL (3.4-5.0) Globulin 4.2 Percent Immature Gran (Cell Imm) 0.20 % (0.00-0.50) Helicobacter pylori Screen POSITIVE (NEGATIVE) Administered Medications Medications (Trade) Dose Ordered Sig/Lyndon Route PRN Reason Start Time Stop Time Status Last Admin Dose Admin Furosemide (Lasix) 40 mg STAT STAT IV 10/04/17 10:31 10/04/17 10:32 DC 10/04/17 11:01 EKG/XRAY/CT/US EKG: NSR, LBBB EKG Comments: LBBB- CHRONIC Consult/PCP Time Consult/PCP Called: 11:33 Consult/PCP: DR DOS SANTOS Course Vitals & review Data Vital Sign - Last 24 Hours 10/04/17 10/04/17 10/04/17 10/04/17 10:27 10:28 10:30 11:01 Temp 98.6 98.6 98.6 98.6 98.6 98.6 Pulse 102 102 102 Resp 22 22 22 B/P (MAP) 125/73 (90) 118/69 Pulse Ox 90 90 O2 Delivery Room Air Room Air Laboratory Tests Test 10/04/17 10:28 White Blood Count 10.6 10^3/uL Red Blood Count 3.70 10^6/uL Hemoglobin 12.0 g/dL Hematocrit 36.0 % Mean Corpuscular Volume 97.3 fL Mean Corpuscular Hemoglobin 32.4 pg Mean Corpuscular Hemoglobin Concent 33.3 g/dL Red Cell Distribution Width 13.7 % Platelet Count 229 10^3/uL Mean Platelet Volume 9.0 fL Neutrophils (%) (Auto) 81.2 % Lymphocytes (%) (Auto) 8.9 % Monocytes (%) (Auto) 7.1 % Neutrophils # (Auto) 8.6 10^3/uL Lymphocytes # (Auto) 0.9 10^3/uL Monocytes # (Auto) 0.8 10^3/uL Absolute Immature Granulocyte (auto 0.02 10^3 u/L Eosinophils % 2.2 % Basophils % 0.4 % Basophils # 0.0 10^3/uL Eosinophil Count 0.2 10^3/uL Prothrombin Time 10.8 SEC Prothrombin Time INR (Non-Therap) 1.1 Activated Partial Thromboplast Time 28.4 SEC D-Dimer 1.54 mg/L Sodium Level 137 mmol/L Potassium Level 4.5 mmol/L Chloride Level 101.0 mmol/L Carbon Dioxide Level 23.3 mmol/L Anion Gap 17.2 Blood Urea Nitrogen 41 mg/dL Creatinine 1.64 mg/dL Estimated GFR () 49.2 BUN/Creatinine Ratio 25.0 Glucose Level 158 mg/dL Calcium Level 9.3 mg/dL Total Bilirubin 0.9 mg/dL Aspartate Amino Transf (AST/SGOT) 16 U/L Alanine Aminotransferase (ALT/SGPT) 22 U/L Alkaline Phosphatase 51 U/L Total Creatine Kinase 75 U/L Creatine Kinase MB 0.7 ng/mL Troponin I < 0.02 ng/mL Pro-B-Type Natriuretic Peptide 1852 pg/mL Total Protein 7.7 g/dL Albumin 3.5 g/dL Globulin 4.2 Percent Immature Gran (Cell Imm) 0.20 % Helicobacter pylori Screen POSITIVE Departure Time of Disposition: 11:33 Disposition: 09 ADMITTED INPATIENT Impression: Primary Impression: Congestive heart failure (CHF) Condition: Improved Referrals: HAN [facility] (PCP) PRIMARY CARE PROVIDER Duration or Time Spent with Pa: 2 HRS KIKE DENNIS MD Oct 04, 2017 10:29
[2017-10-04 10:30] VITALS: BP 125/73
[2017-10-04] MEDS ORDERED: LASIX IV STA ×2 (10:31→11:27)
[2017-10-04 10:33] LABS: BASOPHIL % 0.4 % (0.0-0.2); EOSINOPHIL # 0.2 10^3/uL (0.0-0.2); EOSINOPHIL % 2.2 % (0.0-5.0); LYMPHOCYTES # 0.9 10^3/uL (1.0-4.8); LYMPHOCYTES % 8.9 % (24.0-44.0); MEAN CELL HGB 32.4 pg (26-34); MEAN CELL HGB CONCENTRATION 33.3 g/dL (33-37); MEAN CORP VOLUME 97.3 fL (78-100); MONOCYTES # 0.8 10^3/uL (0.3-0.8); MONOCYTES % 7.1 % (5.0-12.0); NEUTROPHIL # 8.6 10^3/uL (1.8-7.7); NEUTROPHILS % 81.2 % (41.0-85.0); RED CELL DISTRIBUTION WIDTH 13.7 % (11.5-14.5); WHITE BLOOD CELL 10.6 10^3/uL (4.5-11.0)
[2017-10-04] MEDS ORDERED: LASIX ONE (10:55)
[2017-10-04 10:59] LABS: ALANINE AMINOTRANSFERASE(ML) 22 U/L (12-78); ALKALINE PHOSPHATASE 51 U/L (50-136); ASPARTATE AMINO TRANSFERASE 16 U/L (0-35); CALCIUM 9.3 mg/dL (8.4-10.5); CARBON DIOXIDE 23.3 mmol/L (20.0-32); GLUCOSE 158 mg/dL (70-110)
--- NOTE | 2017-10-04 11:13 | DIREP ---
PROCEDURE:CHEST 2 VIEWS COMPARISON:[facility], CR, XRAY CHEST 2 VWS, 12/12/2016, 09:53 AM. [facility], CR, XRAY CHEST SINGLE VW, 10/10/2016, 01:43 PM. INDICATIONS:dyspnea FINDINGS: LUNGS/PLEURA:Diffusely increased interstitial markings throughout both lungs, suspicious for interstitial edema. Small bilateral pleural effusions and mild adjacent bibasilar subsegmental atelectasis are also noted. Otherwise clear. No pneumothorax. VASCULATURE:Mild pulmonary vascular congestion. CARDIAC:Stable mild cardiomegaly. Stable calcified plaque at the aortic knob. MEDIASTINUM:Normal. No visible mass or adenopathy. BONES:Mild thoracic spondylosis. No acute abnormality. OTHER:EKG leads overlie the chest. CONCLUSION: Findings suggestive of CHF/volume overload with bilateral interstitial edema and small bilateral pleural effusions. Dictated by: Brigido Jacques MD on 10/04/2017 at 11:10 AM
[2017-10-04 11:15] VITALS: BP 112/73
--- NOTE | 2017-10-04 11:26 | NUR ---
LEVON DENNIS ON THE PHONE WITH DOCTOR DOS SANTOS, WILL ADMIT PATIENT INPATIENT.
[2017-10-04] MEDS ORDERED: KLOR-CON 10 PO STA (11:27)
--- NOTE | 2017-10-04 11:32 | NUR ---
LEVON SPOKE WITH DOCTOR LEVON, ATTEMPTED TO RECONSILE MEDS DOCTOR CURRENTLY IN CHART, WILL ATTEMPT TO RECONSILE AFTER DOS SANTOS OUT OF CHART.
[2017-10-04 12:07] VITALS: BP 101/65
[2017-10-04 12:30] VITALS: BP 148/71
--- NOTE | 2017-10-04 12:30 | NUR ---
ARRIVAL PT ARRIVED TO FLOOR VIA W/C, REPORT RECEIVED ASSUMED CARE OF PT
[2017-10-04 17:45] VITALS: BP 104/68
--- NOTE | 2017-10-04 18:45 | NUR ---
REPORT REPORT RECEIVED FROM OFF GOING SHIFT
[2017-10-04] MEDS ORDERED: DUONEB 0.5 MG-3 MG/3 ML SOLN IH SCH (21:00)
[2017-10-04] MEDS: ENTRESTO 24 MG-26 MG TABLET PO SCH (21:21)
[2017-10-04] MEDS: DESYREL PO SCH (21:21)
[2017-10-04] MEDS: COREG PO SCH (21:22)
[2017-10-04] MEDS: HYTRIN PO SCH ×2 (21:22→21:23)
[2017-10-04] MEDS: ZOCOR PO SCH (21:24)
[2017-10-04 22:31] VITALS: BP 109/73
[2017-10-05] VITALS (7 sets, daily range): BP systolic 87–139; BP diastolic 56–80
--- NOTE | 2017-10-05 06:40 | NUR ---
REPORT RECEIVED REPORT FROM RADHA OLIVAS. ASSUMED CARE FOR PATIENT AT THIS TIME.
--- NOTE | 2017-10-05 06:46 | NUR ---
report report given to o/c shift
[2017-10-05] MEDS: DIABETA PO SCH (09:00)
[2017-10-05] MEDS: LASIX IV SCH ×2 (09:00→20:54)
[2017-10-05] MEDS: KLOR-CON 10 PO SCH (09:00)
[2017-10-05] MEDS: ASPIRIN PO SCH (09:00)
[2017-10-05] MEDS: MIRALAX PO SCH (09:00)
[2017-10-05] MEDS: FLOMAX PO SCH (09:00)
[2017-10-05] MEDS: ENTRESTO 24 MG-26 MG TABLET PO SCH ×2 (09:00→20:54)
[2017-10-05] MEDS: THERA PO SCH (09:01)
[2017-10-05] MEDS: COREG PO SCH ×2 (09:01→20:54)
--- NOTE | 2017-10-05 09:45 | NUR ---
DISCHARGE PLAN CASE MANAGEMENT VISITED WITH PATIENT CONCERNING DISCHARGE PLAN AND NEEDS. LIVES AT HOME ALONE. INDEPENDENT OF ADLS. PATIENT STATED, "THE LAST COUPLE OF DAYS I HAVE HAD MORE DIFFICULTY WALKING BECAUSE OF ALL THE FLUID." HAS DME INCLUDING WALKER. CASE MANAGEMENT EXPLAINED BENEFITS OF HOME HEALTH, SNF, LTACH, AND OUTPATIENT PHYSICAL THERAPY. PT STATED, "I THINK I WOULD LIKE [facility] TO COME OUT." CHOICE LETTER SIGNED AND RADHA POSEY FROM [facility] CONTACTED REGARDING NEW REFERRAL. HAS NO NEED FOR HOME OXYGEN. DISCHARGE PLAN IS TO DISCHARGE HOME WITH [facility] TO FOLLOW.
--- NOTE | 2017-10-05 16:04 | NUR ---
POST GERMAN PT SATS WERE 98%. HE STATED HE THOUGHT HE WAS HAVING A PANIC ATTACK. I TOLD HIS NURSE AND SHE WENT TO HIS ROOM. Addendum: 10/05/17 at 1605 by Breonna Orozco ORDER MANAGER RT Amended: Links added.
[2017-10-05] MEDS: DUONEB 0.5 MG-3 MG/3 ML SOLN IH PRN (19:54)
[2017-10-05] MEDS: DESYREL PO SCH (20:53)
[2017-10-05] MEDS: ZOCOR PO SCH (20:53)
[2017-10-05] MEDS: HYTRIN PO SCH ×2 (20:53)
[2017-10-06 03:55] VITALS: BP 90/57
--- NOTE | 2017-10-06 07:39 | NUR ---
Report received Assumed care of patient after report received from Raeann FAM at shift change. Patient alert and oriented X3. Up in a recliner, sleeps in a recliner most times at home. Room air 02 saturation 96%. Denies pain. Asked for coffee.
[2017-10-06 08:26] LABS: HEMOGLOBIN 12.3 g/dL (13.9-16.3); MEAN CELL HGB 32.7 pg (26-34); MEAN CELL HGB CONCENTRATION 33.6 g/dL (33-37); MEAN CORP VOLUME 97.3 fL (78-100); MEAN PLATELET VOLUME 9.1 fL (7.8-11.0); RED CELL DISTRIBUTION WIDTH 13.6 % (11.5-14.5); WHITE BLOOD CELL 10.5 10^3/uL (4.5-11.0)
[2017-10-06 08:37] LABS: CALCIUM 8.8 mg/dL (8.4-10.5); CARBON DIOXIDE 26.5 mmol/L (20.0-32)
[2017-10-06 08:38] VITALS: BP 111/69
[2017-10-06] MEDS: DIABETA PO SCH (10:11)
[2017-10-06] MEDS: ASPIRIN PO SCH (10:12)
[2017-10-06] MEDS: KLOR-CON 10 PO SCH (10:12)
[2017-10-06] MEDS: LASIX IV SCH ×2 (10:12→21:02)
[2017-10-06] MEDS: MIRALAX PO SCH (10:13)
[2017-10-06] MEDS: ENTRESTO 24 MG-26 MG TABLET PO SCH ×2 (10:13→21:04)
[2017-10-06] MEDS: THERA PO SCH (10:13)
[2017-10-06] MEDS: FLOMAX PO SCH (10:13)
[2017-10-06] MEDS: COREG PO SCH ×2 (10:14→21:03)
[2017-10-06 12:15] VITALS: BP 105/71
--- NOTE | 2017-10-06 13:49 | HPH ---
ADMIT DATE: 10/05/2017 CHIEF COMPLAINT: Lower extremity swelling. HISTORY OF PRESENT ILLNESS: The patient is a pleasant 81-year-old gentleman with a past medical history significant for congestive heart failure, systolic and diastolic dysfunction with a last known LVEF of around 35%, history of hypertension, hyperlipidemia, peripheral vascular disease, diabetes mellitus type 2 with nonischemic cardiomyopathy. He presented to ER with complaints of some lower extremity swelling. He is on a diuretic at home. He does not weigh himself. He has scales at home, but he does not think they are accurate, so he does not weigh himself, so he does not know his baseline weight. He states he has felt like he has gained increased amount of weight, which has made him difficult to walk. His proBNP is elevated in the Emergency Room, workup, but he is also on Entresto, which were elevated BNP. He is on metformin for his diabetes. He normally is ambulatory with a cane, but has had increasing difficulty ambulating due to he believes lower extremity edema. No other recent medication changes. PAST MEDICAL HISTORY: Includes congestive heart failure, systolic and diastolic dysfunction with a last known LVEF of 35% with a nonischemic cardiomyopathy, diabetes mellitus type 2, BPH, hypertension, hyperlipidemia, peripheral vascular disease with a prior TIA, history of tobacco abuse in the past. PAST SURGICAL HISTORY: He has had a heart catheterization performed, prostate surgery twice. ALLERGIES: No known drug allergies. HOME MEDICATIONS: List currently includes aspirin 325 mg daily, carvedilol 6.25 mg twice a day, vitamin D daily, Lasix 40 mg daily, glyburide 2.5 mg daily, metformin 1 gram twice a day, multivitamin daily, potassium 10 mEq daily, Entresto 1 tablet twice a day, terazosin 5 mg at night, trazodone 50 mg at night. SOCIAL HISTORY: Lives at home, has a distant history of tobacco use. Denies any current tobacco, alcohol or illicit drug use. FAMILY HISTORY: Negative for early coronary artery disease or diabetes. REVIEW OF SYSTEMS: CARDIAC: Denies chest pain, shortness of breath. He does have some dyspnea on exertion. PULMONARY: No cough, sputum production or pleuritic chest pain. GASTROINTESTINAL: No nausea, vomiting, diarrhea or constipation. All else negative in 10 point review of system except as in HPI. PHYSICAL EXAMINATION: VITAL SIGNS: Upon arrival to the ER, height 180.3 cm, weight 125.2 kilograms, temperature 98.6, pulse 102, respirations 22, blood pressure 125/73, O2 saturation 90% on room air. GENERAL: He is alert, in no acute distress at time of exam. HEENT: Pupils equal, round, reactive to light. Sclerae are anicteric. Oropharynx is clear. Mucous membranes are moist. NECK: Supple, no lymphadenopathy. CARDIOVASCULAR: At time of exam was regular rate and rhythm. LUNGS: Mild rales bilaterally. No wheezing. ABDOMEN: Soft. Bowel sounds are present. Obese, nontender to palpation. EXTREMITIES: No cyanosis or clubbing. He has chronic lower extremity edema and it is moderate in nature. NEUROLOGIC: Grossly nonfocal. INITIAL LABORATORY DATA: CBC: White count 10.6, hemoglobin 12.0, platelets 229. Differential: 81% neutrophils, 9% lymphocytes, 7% monocytes. Sodium 137, potassium 4.5, chloride 101, CO2 is 23, BUN 41, creatinine 1.64, glucose is 158, calcium is 9.3, total bilirubin 0.9, AST 16, ALT 22, alkaline phosphatase 51, total CK 75, CK-MB 0.7. Troponin I is less than 0.02, proBNP is 1152, but he is also on Entresto. Total protein 7.7, albumin 3.5. PT of 10.8, PTT 28.4. H. pylori is positive. IMAGING STUDIES: Chest x-ray does reveal some increased vascular congestion. ASSESSMENT AND PLAN: The patient is an 81-year-old man here with [id number] diastolic heart failure with systolic heart failure with LVEF of 35% with nonischemic cardiomyopathy with acute hypoxemic respiratory failure, chronic kidney disease stage 3, likely acute renal failure on top of chronic kidney disease stage 3, anemia due to chronic disease. 1. Oxygen protocol. 2. Continue cardiac medication. We will give IV Lasix. 3. Monitor I's and O's. 4. Ambulate as tolerated with fall precautions. 5. We will continue his other home medications. Time spent on 10/05/2017 is 45 minutes. This plan was discussed with the patient. He is his own decision maker. He does understand and concur with plans. Hema Barron MD DR: STEPHANIE/jay JOB# [id number]
--- NOTE | 2017-10-06 17:29 | NUR ---
skin assessment Patient bathed by this RN. Patient found to have a yeast smell with redness and excoriation to groin, under panus, under arms and under breasts. All areas washed with warm soapy water, patted dry, interdry applied to all above mentioned areas. Patient tolerated well.
[2017-10-06 17:31] VITALS: BP 92/67
[2017-10-06] MEDS ORDERED: DULCOLAX EC TABLET PO PRN (18:30)
--- NOTE | 2017-10-06 18:45 | NUR ---
Report Received bedside report from August Gimenez RN
[2017-10-06] MEDS: COLACE PO SCH (21:02)
[2017-10-06] MEDS: ZOCOR PO SCH (21:03)
[2017-10-06] MEDS: HYTRIN PO SCH ×2 (21:03)
[2017-10-06] MEDS: DESYREL PO SCH (21:04)
[2017-10-06 22:10] VITALS: BP 104/66
[2017-10-07 00:41] VITALS: BP 97/61
[2017-10-07 04:39] VITALS: BP 95/60
[2017-10-07 05:34] LABS: BASOPHIL % 0.2 % (0.0-0.2); EOSINOPHIL # 0.4 10^3/uL (0.0-0.2); EOSINOPHIL % 4.1 % (0.0-5.0); HEMOGLOBIN 12.2 g/dL (13.9-16.3); LYMPHOCYTES # 1.1 10^3/uL (1.0-4.8); MEAN CELL HGB 32.4 pg (26-34); MEAN CELL HGB CONCENTRATION 33.7 g/dL (33-37); MEAN CORP VOLUME 96.3 fL (78-100); MEAN PLATELET VOLUME 9.5 fL (7.8-11.0); MONOCYTES # 0.9 10^3/uL (0.3-0.8); MONOCYTES % 9.5 % (5.0-12.0); NEUTROPHIL # 7.2 10^3/uL (1.8-7.7); RED CELL DISTRIBUTION WIDTH 13.7 % (11.5-14.5); WHITE BLOOD CELL 9.6 10^3/uL (4.5-11.0)
[2017-10-07 06:14] LABS: CALCIUM 8.7 mg/dL (8.4-10.5); CARBON DIOXIDE 25.7 mmol/L (20.0-32)
--- NOTE | 2017-10-07 06:19 | NUR ---
Report Report given to oncoming shift
[2017-10-07 07:15] VITALS: BP 92/64
[2017-10-07] MEDS: LASIX IV SCH ×2 (09:09→20:52)
[2017-10-07] MEDS: COREG PO SCH ×2 (09:09→20:52)
[2017-10-07] MEDS: KLOR-CON 10 PO SCH (09:09)
[2017-10-07] MEDS: ASPIRIN PO SCH (09:09)
[2017-10-07] MEDS: MIRALAX PO SCH (09:10)
[2017-10-07] MEDS: COLACE PO SCH ×2 (09:10→20:53)
[2017-10-07] MEDS: DIABETA PO SCH (09:10)
[2017-10-07] MEDS: FLOMAX PO SCH (09:10)
[2017-10-07] MEDS: ENTRESTO 24 MG-26 MG TABLET PO SCH ×2 (09:10→20:52)
[2017-10-07] MEDS: THERA PO SCH (09:10)
--- NOTE | 2017-10-07 09:20 | NUR ---
Report Assumed care of patient after report received from Praveena FAM at shift change. Drowsy, awakens. Oriented X3. Sitting up in Recliner, where he spent the night.
[2017-10-07] MEDS: DUONEB 0.5 MG-3 MG/3 ML SOLN IH PRN (11:35)
[2017-10-07 12:15] VITALS: BP 83/54
[2017-10-07 16:33] VITALS: BP 90/61
--- NOTE | 2017-10-07 17:54 | NUR ---
Blood Pressure KEIRA Parra assessed BP at 84/52, notified this RN. Manual BP taken by this RN reassessed as 102/62.
--- NOTE | 2017-10-07 19:17 | NUR ---
Patient sitting up in chair. Denies pain/discomfort at this time. Resp even and non labored. Hale cath draining to gravity. Will continue to monitor. Call light within reach.
--- NOTE | 2017-10-07 19:17 | NUR ---
Report Received report from August Gimenez RN
[2017-10-07 20:26] VITALS: BP 107/68
[2017-10-07] MEDS: DESYREL PO SCH (20:53)
[2017-10-07] MEDS: HYTRIN PO SCH ×2 (20:53)
[2017-10-07] MEDS: ZOCOR PO SCH (20:53)
[2017-10-08 00:27] VITALS: BP 95/65
[2017-10-08 04:48] VITALS: BP 104/69
--- NOTE | 2017-10-08 06:18 | NUR ---
Report Report given to oncoming shift
[2017-10-08 07:00] VITALS: BP 100/68
[2017-10-08] MEDS: DUONEB 0.5 MG-3 MG/3 ML SOLN IH PRN (08:09)
[2017-10-08] MEDS: LASIX IV SCH (09:36)
[2017-10-08] MEDS: KLOR-CON 10 PO SCH (09:38)
[2017-10-08] MEDS: COREG PO SCH (09:38)
[2017-10-08] MEDS: ASPIRIN PO SCH (09:38)
[2017-10-08] MEDS: THERA PO SCH (09:38)
[2017-10-08] MEDS: DIABETA PO SCH (09:38)
--- NOTE | 2017-10-08 09:38 | PRM.DC ---
Discharge Summary Date of Discharge: Oct 07, 2017 Reason for Visit: Shortness of breath Patient History: FH: breast cancer G8 SISTER FH: lymphoma, malignant 32 MOTHER, , Age:94 No known health problems History Present Illness: (1) Congestive heart failure (CHF) Permanent Comment: Acute on chronic systolic congestive heart failure Left ventricular failure Cardiomyopathy Essential hypertension - controlled on medication Last Edited By: Dayana Rothman NP on Oct 12, 2016 10:27 Onset Date: ~ 09/20/2016 Status: Chronic ICD Code: I50.9 - Heart failure, unspecified SNOMED: 78260009 (2) CAD (coronary artery disease) Status: Chronic ICD Code: I25.10 - Atherosclerotic heart disease of [place] coronary artery without angina pectoris SNOMED: 36834905 (3) BPH (benign prostatic hypertrophy) with urinary obstruction Status: Chronic ICD Code: N40.1 - Benign prostatic hyperplasia with lower urinary tract symptoms; N13.8 - Other obstructive and reflux uropathy SNOMED: 316037142 General: Alert, Oriented X3, Cooperative, No acute distress HEENT: PERRLA, EOMI Neck: Supple, No JVD Lungs: Clear to auscultation, Normal air movement Heart: Regular rate, Normal S1, Normal S2 Abdomen: Normal bowel sounds, Soft Extremities: No clubbing, No cyanosis, No edema Skin: No breakdown Neuro: Normal speech, Strength at 5/5 X4 ext, Sensation intact, Cranial nerves 3-12 NL Psych/Mental Status: Mood NL Results(Labs/Rad) Laboratory Tests Test 10/07/17 04:59 White Blood Count 9.6 10^3/uL Red Blood Count 3.76 10^6/uL Hemoglobin 12.2 g/dL Hematocrit 36.2 % Mean Corpuscular Volume 96.3 fL Mean Corpuscular Hemoglobin 32.4 pg Mean Corpuscular Hemoglobin Concent 33.7 g/dL Red Cell Distribution Width 13.7 % Platelet Count 258 10^3/uL Mean Platelet Volume 9.5 fL Neutrophils (%) (Auto) 75.0 % Lymphocytes (%) (Auto) 11.0 % Monocytes (%) (Auto) 9.5 % Neutrophils # (Auto) 7.2 10^3/uL Lymphocytes # (Auto) 1.1 10^3/uL Monocytes # (Auto) 0.9 10^3/uL Absolute Immature Granulocyte (auto 0.02 10^3 u/L Eosinophils % 4.1 % Basophils % 0.2 % Basophils # 0.0 10^3/uL Eosinophil Count 0.4 10^3/uL Sodium Level 136 mmol/L Potassium Level 3.6 mmol/L Chloride Level 100.0 mmol/L Carbon Dioxide Level 25.7 mmol/L Glucose Level 146 mg/dL Blood Urea Nitrogen 32 mg/dL Creatinine 1.46 mg/dL Calcium Level 8.7 mg/dL Anion Gap 13.9 Estimated GFR () 56.2 BUN/Creatinine Ratio 21.0 Percent Immature Gran (Cell Imm) 0.20 % Scheduled Aspirin (Aspirin), 1 TAB PO DAILY, (Reported) Carvedilol (Carvedilol), 1 TAB PO BID, (Reported) Cholecalciferol (Vitamin D3) (Vitamin D), 1 CAP PO DAILY, (Reported) Furosemide (Furosemide), 1 TAB PO DAILY, (Reported) Glyburide (Glyburide), 1 TAB PO DAILY, (Reported) Metformin Hcl (Metformin Hcl), 1 TAB PO BID, (Reported) Multivitamin (Multi Vitamin Daily), 1 EACH PO DAILY, (Reported) Potassium Chloride (K-Tab), 10 MEQ PO DAILY, (Reported) Sacubitril/Valsartan (Entresto 24 mg-26 mg Tablet), 1 EACH PO BID, (Reported) Terazosin Hcl (Terazosin Hcl), 5 MG PO HS, (Reported) Trazodone Hcl (Trazodone Hcl), 1 TAB PO HS, (Reported) Discontinued Medications Aspirin (Aspir 81), 1 TAB PO DAILY, (Reported) Discontinued Reason: Discontinue Enalapril/Hydrochlorothiazide (Enalapril-Hctz 10-25 Mg Tablet), 1 TAB PO DAILY, (Reported) Discontinued Reason: Discontinue Polyethylene Glycol 3350 (Miralax), 1 PKT PO DAILY, (Reported) Discontinued Reason: Discontinue Simvastatin (Simvastatin), 1 TAB PO HS, (Reported) Discontinued Reason: Discontinue Tamsulosin Hcl (Flomax), 0.4 MG PO DAILY Discontinued Reason: Discontinue Sepsis Evaluation @ Discharge Vital Sign - Last 24 Hours 10/04/17 10/04/17 10/04/17 10/04/17 10:27 10:28 10:30 11:01 Temp 98.6 98.6 98.6 98.6 98.6 98.6 Pulse 102 102 102 Resp 22 22 22 B/P (MAP) 125/73 (90) 118/69 Pulse Ox 90 90 O2 Delivery Room Air Room Air Laboratory Tests Test 10/04/17 10:28 White Blood Count 10.6 10^3/uL Red Blood Count 3.70 10^6/uL Hemoglobin 12.0 g/dL Hematocrit 36.0 % Mean Corpuscular Volume 97.3 fL Mean Corpuscular Hemoglobin 32.4 pg Mean Corpuscular Hemoglobin Concent 33.3 g/dL Red Cell Distribution Width 13.7 % Platelet Count 229 10^3/uL Mean Platelet Volume 9.0 fL Neutrophils (%) (Auto) 81.2 % Lymphocytes (%) (Auto) 8.9 % Monocytes (%) (Auto) 7.1 % Neutrophils # (Auto) 8.6 10^3/uL Lymphocytes # (Auto) 0.9 10^3/uL Monocytes # (Auto) 0.8 10^3/uL Absolute Immature Granulocyte (auto 0.02 10^3 u/L Eosinophils % 2.2 % Basophils % 0.4 % Basophils # 0.0 10^3/uL Eosinophil Count 0.2 10^3/uL Prothrombin Time 10.8 SEC Prothrombin Time INR (Non-Therap) 1.1 Activated Partial Thromboplast Time 28.4 SEC D-Dimer 1.54 mg/L Sodium Level 137 mmol/L Potassium Level 4.5 mmol/L Chloride Level 101.0 mmol/L Carbon Dioxide Level 23.3 mmol/L Anion Gap 17.2 Blood Urea Nitrogen 41 mg/dL Creatinine 1.64 mg/dL Estimated GFR () 49.2 BUN/Creatinine Ratio 25.0 Glucose Level 158 mg/dL Calcium Level 9.3 mg/dL Total Bilirubin 0.9 mg/dL Aspartate Amino Transf (AST/SGOT) 16 U/L Alanine Aminotransferase (ALT/SGPT) 22 U/L Alkaline Phosphatase 51 U/L Total Creatine Kinase 75 U/L Creatine Kinase MB 0.7 ng/mL Troponin I < 0.02 ng/mL Pro-B-Type Natriuretic Peptide 1852 pg/mL Total Protein 7.7 g/dL Albumin 3.5 g/dL Globulin 4.2 Percent Immature Gran (Cell Imm) 0.20 % Helicobacter pylori Screen POSITIVE Course Sepsis Screening Results: Posi: NEGATIVE Sepsis Qualifier/Stage: NO DEFINITE RISK Vitals & review Data Vital Sign - Last 24 Hours 10/04/17 10/04/17 10/04/17 10/04/17 10:27 10:28 10:30 11:01 Temp 98.6 98.6 98.6 98.6 98.6 98.6 Pulse 102 102 102 Resp 22 22 22 B/P (MAP) 125/73 (90) 118/69 Pulse Ox 90 90 O2 Delivery Room Air Room Air Laboratory Tests Test 10/04/17 10:28 White Blood Count 10.6 10^3/uL Red Blood Count 3.70 10^6/uL Hemoglobin 12.0 g/dL Hematocrit 36.0 % Mean Corpuscular Volume 97.3 fL Mean Corpuscular Hemoglobin 32.4 pg Mean Corpuscular Hemoglobin Concent 33.3 g/dL Red Cell Distribution Width 13.7 % Platelet Count 229 10^3/uL Mean Platelet Volume 9.0 fL Neutrophils (%) (Auto) 81.2 % Lymphocytes (%) (Auto) 8.9 % Monocytes (%) (Auto) 7.1 % Neutrophils # (Auto) 8.6 10^3/uL Lymphocytes # (Auto) 0.9 10^3/uL Monocytes # (Auto) 0.8 10^3/uL Absolute Immature Granulocyte (auto 0.02 10^3 u/L Eosinophils % 2.2 % Basophils % 0.4 % Basophils # 0.0 10^3/uL Eosinophil Count 0.2 10^3/uL Prothrombin Time 10.8 SEC Prothrombin Time INR (Non-Therap) 1.1 Activated Partial Thromboplast Time 28.4 SEC D-Dimer 1.54 mg/L Sodium Level 137 mmol/L Potassium Level 4.5 mmol/L Chloride Level 101.0 mmol/L Carbon Dioxide Level 23.3 mmol/L Anion Gap 17.2 Blood Urea Nitrogen 41 mg/dL Creatinine 1.64 mg/dL Estimated GFR () 49.2 BUN/Creatinine Ratio 25.0 Glucose Level 158 mg/dL Calcium Level 9.3 mg/dL Total Bilirubin 0.9 mg/dL Aspartate Amino Transf (AST/SGOT) 16 U/L Alanine Aminotransferase (ALT/SGPT) 22 U/L Alkaline Phosphatase 51 U/L Total Creatine Kinase 75 U/L Creatine Kinase MB 0.7 ng/mL Troponin I < 0.02 ng/mL Pro-B-Type Natriuretic Peptide 1852 pg/mL Total Protein 7.7 g/dL Albumin 3.5 g/dL Globulin 4.2 Percent Immature Gran (Cell Imm) 0.20 % Helicobacter pylori Screen POSITIVE Plan Discharge Date: Oct 08, 2017 Dicharge DX: 1. Acute on chronic diastolic CHF, 2. CAD, 3. BPH, 4. HTN Discharge Disposition: Stable Plan Resume home medications Home health for nursing and PT Follow up with PCP next week Diet and activity as tolerated Discharge plans discussed with patient, he is his own decision maker and does understand and concur with plans Time spent 25 minutes Problem Qualifiers (1) Congestive heart failure (CHF): Heart failure type: combined systolic and diastolic (2) CAD (coronary artery disease): Coronary Disease-Associated Artery/Lesion type: [place] artery [place] vs. transplanted heart: [place] heart JOSÉ MIGUEL DOS SANTOS MD Oct 08, 2017 09:38
[2017-10-08] MEDS: MIRALAX PO SCH (09:39)
[2017-10-08] MEDS: COLACE PO SCH (09:39)
[2017-10-08] MEDS: FLOMAX PO SCH (09:43)
[2017-10-08] MEDS: ENTRESTO 24 MG-26 MG TABLET PO SCH (09:43)
--- NOTE | 2017-10-08 10:14 | NUR ---
DISCHARGE INSTRUCTIONS GIVEN TO INCLUDE HOME MEDICATIONS TO CONTINUE. [facility] WILL FOLLOW AT HOME. NO QUESTIONS AT THIS TIME.
[2017-10-08 12:28] VITALS: BP 95/63
--- NOTE | 2017-10-08 23:25 | PNH ---
DATE: 10/06/2017 SUBJECTIVE: No chest pain. He is on oxygen at time of exam. He has had good diuresis overnight. No other acute changes. OBJECTIVE: VITAL SIGNS: T-max last 24 hours is 98.3, pulse of 85, respiratory rate 18, blood pressure 92/67, O2 saturation 95% on room air. GENERAL: He is alert, in no acute distress at time of exam. HEENT: Pupils equal, round and reactive to light. Sclerae are anicteric. Oropharynx is clear. Mucous membranes are moist. NECK: Supple, no lymphadenopathy. CARDIOVASCULAR: At time of exam is regular rate and rhythm. LUNGS: Improved aeration bilaterally. ABDOMEN: Soft. Bowel sounds are present, nontender to palpation. EXTREMITIES: No cyanosis or clubbing. He does have some lower extremity edema, but is much improved. NEUROLOGIC: Grossly nonfocal. LABORATORY DATA: CBC: White count is 10.5, hemoglobin 12.3, platelets 242. Sodium 135, potassium 3.9, chloride 100, CO2 is 26, BUN 33, creatinine 1.5, glucose is 176, calcium is 8.8. ASSESSMENT AND PLAN: The patient is an 81-year-old male with fbdmv-yd-rvoenjl diastolic heart failure with acute renal failure, likely on top of chronic kidney disease stage 3 with multiple other medical problems. 1. Continue IV diuresis. 2. Continue rest of his cardiovascular medications. 3. ADA diet, sliding scale insulin and continue diabetic medications. 4. Wean off oxygen as tolerated. Time spent on 10/06/2017 is 25 minutes. Hema Barron MD DR: STEPHANIE/jay JOB# [id number]
--- NOTE | 2017-10-08 23:40 | PNH ---
DATE: 10/07/2017 SUBJECTIVE: No complaints of chest pain. He still has urinary catheter in place and is receiving IV Lasix. He is out of bed to chair. OBJECTIVE: VITAL SIGNS: T-max last 24 hours is 97.6, pulse of 81, respiratory rate is 18, blood pressure 107/68, O2 saturation 98% on room air. GENERAL: He is alert, in no acute distress at time of exam. HEENT: Pupils equal, round, reactive to light. Sclerae are anicteric. Oropharynx is clear. Mucous membranes are moist. NECK: Supple, no lymphadenopathy. CARDIOVASCULAR: At time of exam is regular rate and rhythm. Occasional ectopy. LUNGS: Improved aeration bilaterally. No wheezing. ABDOMEN: Soft. Bowel sounds are present, nontender to palpation. EXTREMITIES: No cyanosis, clubbing. He still has some lower extremity edema, but is improved. NEUROLOGIC: Grossly nonfocal. LABORATORY DATA: CBC: White count 9.6, hemoglobin 12.2 and platelets 258. Differential: 75% neutrophils, 11% lymphocytes and 9% monocytes. Sodium 136, potassium 3.6, chloride 100, CO2 is 26, BUN 32, creatinine 1.46, glucose 146, calcium is 8.7. ASSESSMENT AND PLAN: The patient is an 81-year-old man with qnelk-wp-pyvmtvm diastolic heart failure with acute renal failure with chronic kidney disease stage 3, with improved renal function. 1. Continue IV diuresis. 2. Continue his cardiovascular medications. 3. Encourage increased mobility. He has a walker in the room. Time spent on 10/07/2017 was 25 minutes. Hema Barron MD DR: STEPHANIE/jay JOB# [id number]
== END 2017-10-08 10:14 | disposition home health service (06) | DRG 291 ==
LOC: ER 10:12 → MS 11:34
PROVIDERS: ADMIT Internal Medicine; ATTEND Internal Medicine
DX: I13.0 Hypertensive heart and chronic kidney disease with heart failure and stage 1 through stage 4 chronic kidney disease, or unspecified chronic kidney disease (principal); I50.43 Acute on chronic combined systolic (congestive) and diastolic (congestive) heart failure; J96.01 Acute respiratory failure with hypoxia; N17.9 Acute kidney failure, unspecified; N13.8 Other obstructive and reflux uropathy; I25.10 Atherosclerotic heart disease of native coronary artery without angina pectoris; N40.1 Benign prostatic hyperplasia with lower urinary tract symptoms; I42.9 Cardiomyopathy, unspecified; J44.9 Chronic obstructive pulmonary disease, unspecified; N18.3 Chronic kidney disease, stage 3 (moderate); E11.22 Type 2 diabetes mellitus with diabetic chronic kidney disease; E78.5 Hyperlipidemia, unspecified; E11.51 Type 2 diabetes mellitus with diabetic peripheral angiopathy without gangrene; D63.8 Anemia in other chronic diseases classified elsewhere; Z79.82 Long term (current) use of aspirin; Z79.899 Other long term (current) drug therapy; Z79.84 Long term (current) use of oral hypoglycemic drugs; Z86.73 Personal history of transient ischemic attack (TIA), and cerebral infarction without residual deficits; Z87.891 Personal history of nicotine dependence; Z80.3 Family history of malignant neoplasm of breast; Z80.7 Family history of other malignant neoplasms of lymphoid, hematopoietic and related tissues
CPT/HCPCS: 36415; 71046; 80048; 80053; 82550; 82553; 82948; 83880; 84484; 85025; 85027; 85379; 85610; 85730; 86677; 93005; 94640; 96374; 97161; 99285; J1940; J3480; J7620; G8978-CI; G8979-CI; G8980-CI

== ENCOUNTER → 2018-06-12 | Outpatient (CLI) | payer MEDICARE, BC ==
[~2018-06-12] MED LIST changes: -METF10003 PO; +METF10007 PO; +TRAZ-124 PO; -TRAZ50TA18 PO
== END | disposition home or self-care (01) ==
LOC: LAB 18:47
PROVIDERS: ATTEND Nurse Practitioner Family
DX: E11.42 Type 2 diabetes mellitus with diabetic polyneuropathy (principal)
CPT/HCPCS: 83036

== ENCOUNTER → 2018-08-24 | Outpatient (CLI) | payer MEDICARE, BC ==
[~2018-08-24] MED LIST changes: -TRAZ-124 PO; +TRAZ-163 PO
== END | disposition home or self-care (01) ==
LOC: LAB 10:31
PROVIDERS: ATTEND Family Medicine
DX: I48.91 Unspecified atrial fibrillation (principal); Z79.01 Long term (current) use of anticoagulants
CPT/HCPCS: 85610

== ENCOUNTER → 2018-10-17 | Outpatient (CLI) | payer MEDICARE, BC | END | disposition home or self-care (01) | LOC: NPLAB 09:56 | PROVIDERS: ATTEND Family Medicine | DX: E11.42 Type 2 diabetes mellitus with diabetic polyneuropathy (principal); I48.91 Unspecified atrial fibrillation; I11.0 Hypertensive heart disease with heart failure; I50.22 Chronic systolic (congestive) heart failure | CPT/HCPCS: 83036; 85610 ==

== ENCOUNTER 2019-02-22 11:09 | Emergency (ER) | payer MEDICARE, BC ==
[~2019-02-22] VITALS: Ht 180.3 cm; Wt 107.0 kg
[~2019-02-22 11:09] MED LIST changes: +SIMV40TA20 PO; -SIMV40TA3 PO
[2019-02-22 11:48] VITALS: BP 108/69
--- NOTE | 2019-02-22 12:02 | PCM.EKG ---
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
--- NOTE | 2019-02-22 12:13 | DIREP ---
PROCEDURE:CHEST 1 VIEW COMPARISON:[facility], CR, XRAY CHEST 2 VWS, 10/04/2017, 10:30 AM. [facility], CR, XRAY CHEST 2 VWS, 12/12/2016, 09:53 AM. [facility], CR, XRAY CHEST SINGLE VW, 10/10/2016, 01:43 PM. INDICATIONS:cough, weakness FINDINGS: LUNGS/PLEURA:No significant pulmonary parenchymal abnormalities. No effusions. VASCULATURE:Normal. Unremarkable pulmonary vasculature. CARDIAC:Cardiomegaly. Two lead cardiac pacemaker. An epicardial lead. MEDIASTINUM:Sternotomy wires. Mild aortic calcification. BONES:Mild diffuse degenerative change. OTHER:Negative. CONCLUSION:Cardiomegaly. No acute pulmonary process. Dictated by: Denia Carey M.D. on 02/22/2019 at 12:10 PM
[2019-02-22 12:18] LABS: BASOPHIL % 0.2 % (0.0-0.2); EOSINOPHIL % 0.2 % (0.0-5.0); LYMPHOCYTES # 0.7 10^3/uL (1.0-4.8); LYMPHOCYTES % 4.8 % (24.0-44.0); MEAN CORP HGB 31.6 pg (26-34); MONOCYTES # 0.8 10^3/uL (0.3-0.8); MONOCYTES % 5.7 % (5.0-12.0); NEUTROPHIL # 12.2 10^3/uL (1.8-7.7); RED CELL DISTRIBUTION WIDTH 13.5 % (11.5-14.5)
[2019-02-22 12:40] LABS: ALANINE AMINOTRANSFERASE(ML) 42 U/L (12-78); ALKALINE PHOSPHATASE 82 U/L (50-136); ASPARTATE AMINO TRANSFERASE 24 U/L (0-35); CALCIUM 8.5 mg/dL (8.4-10.5); CARBON DIOXIDE 25.1 mmol/L (20.0-32); GLUCOSE 172 mg/dL (70-110)
[2019-02-22 13:01] LABS: BILIRUBIN,URINE NEGATIVE (NEGATIVE); UROBILINOGEN,URINE NORMAL (NEGATIVE)
--- NOTE | 2019-02-22 13:08 | ER.PDOC ---
General Chief Complaint: Requesting Medical Care Stated Complaint: FELL, CONGESTION, COUGH Time seen by MD: 11:40 Source: patient Exam Limitations: no limitations History of Present Illness Initial Comments Pt adeola in by friend, after he felt weak and slid off the bed onto the floor. Could not get up on his own. Has had some coughing and aches for the last 2-3 days. Denies dyspnea. Timing/Duration: gradual Associated Symptoms: runny nose, sore throat, cough Prior symptoms/Treatment: Similar symptoms previous; No Recenly Seen Allergies: Coded Allergies: No Known Drug Allergies (Verified Allergy, Mild, 12/10/15) Home Meds Reported Medications Cholecalciferol (Vitamin D3) (VITAMIN D) 2,000 Unit Capsule, 1 CAP PO DAILY, #30 CAP 3 Refills 12/12/16 Sacubitril/Valsartan (Entresto 24 mg-26 mg Tablet) 1 Each Tablet, 1 EACH PO BID, TABLET 12/12/16 Terazosin Hcl (TERAZOSIN HCL) 5 Mg Capsule, 5 MG PO HS, CAPSULE 10/11/16 Aspirin (ASPIRIN) 325 Mg Tablet, 1 TAB PO DAILY, #30 TAB 5 Refills 02/25/16 Furosemide (FUROSEMIDE) 40 Mg Tablet, 1 TAB PO DAILY, #30 TAB 5 Refills 02/25/16 Glyburide (GLYBURIDE) 2.5 Mg Tablet, 1 TAB PO DAILY, #30 TAB 5 Refills 02/25/16 Multivitamin (Multi Vitamin Daily) 1 Each Tablet, 1 EACH PO DAILY, TABLET 12/11/15 Trazodone Hcl (TRAZODONE HCL) 50 Mg Tablet, 1 TAB PO HS, TAB 12/11/15 Potassium Chloride (K-TAB) 10 Meq Tablet.er, 10 MEQ PO DAILY 12/28/14 Metformin Hcl (METFORMIN HCL) 1,000 Mg Tablet, 1 TAB PO BID, TAB 12/26/14 Carvedilol (CARVEDILOL) 6.25 Mg Tablet, 1 TAB PO BID, TAB 12/26/14 Constitutional: chills (mild) EENTM: see HPI Respiratory: see HPI; denies shortness of breath, denies stridor, denies whe ezing Cardiovascular: no symptoms reported Gastrointestinal: no symptoms reported Genitourinary: no symptoms reported Musculoskeletal: no symptoms reported Psychiatric/Neurological: weakness (generalized, mild) Endocrine: no symptoms reported All Other Systems: Reviewed and Negative Past Medical History Medical History: congestive heart failure, heart valve disease, other Surgical History: cardiac cath Social History Alcohol Use: occassionally Drug Use: none Physical Exam General Appearance: alert, no distress Eye: eyes nml inspection, lids & conjunct. nml, PERRL, no nystagmus Ear: ear nml Nose: nose nml Throat: pharynx nml, airway nml Neck: nml inspection, supple Respiratory: no resp.distress, breath sounds nml Abdomen: non-tender, no organomegaly Skin: color nml, no rash, warm/dry NEURO/PSYCH: oriented x 3, CN's nml as tested, sensation nml, other (mild generalized weakness) Results/Orders Results/Orders Orders - ERICK PARRA DO Cbc With Auto Diff (02/22/19 11:52) Comprehensive Metabolic Panel (02/22/19 11:52) Probnp B-Type Corrugator Machine Operator (02/22/19 11:52) Troponin I (02/22/19 11:52) Blood Culture (02/22/19 11:52) Xr Chest 1v (02/22/19 11:52) Ekg-Routine (02/22/19 11:52) Influenza A&B (02/22/19 11:52) Urinalysis (02/22/19 11:54) Vital Signs Date Time Temp Pulse Resp B/P (MAP) Pulse Ox O2 Delivery O2 Flow Rate FiO2 02/22/19 11:48 98.4 107 18 02/22/19 11:28 98.4 107 22 95 Laboratory Tests Test 02/22/19 12:04 02/22/19 12:07 02/22/19 12:59 Influenza Type A Antigen POSITIVE (NEG) Influenza B Immunofluorescence NEGATIVE (NEG) White Blood Count 13.7 10^3/uL (4.5-11.0) H Red Blood Count 4.49 10^6/uL (4.50-5.90) L Hemoglobin 14.2 g/dL (13.9-16.3) Hematocrit 42.1 % (37.0-53.0) Mean Corpuscular Volume 93.8 fL (78-100) Mean Corpuscular Hemoglobin 31.6 pg (26-34) Mean Corpuscular Hemoglobin Concent 33.7 g/dL (33-37) Red Cell Distribution Width 13.5 % (11.5-14.5) Platelet Count 204 10^3/uL (150-400) Mean Platelet Volume 8.8 fL (7.8-11.0) Neutrophils (%) (Auto) 89.0 % (41.0-85.0) H Lymphocytes (%) (Auto) 4.8 % (24.0-44.0) *L Monocytes (%) (Auto) 5.7 % (5.0-12.0) Neutrophils # (Auto) 12.2 10^3/uL (1.8-7.7) H Lymphocytes # (Auto) 0.7 10^3/uL (1.0-4.8) L Monocytes # (Auto) 0.8 10^3/uL (0.3-0.8) Absolute Immature Granulocyte (auto 0.02 10^3 u/L (0-2) Absolute Eosinophils (auto) 0.0 10^3/uL (0.0-0.2) Immature Granulocytes % 0.10 % (0.00-0.50) Eosinophils % 0.2 % (0.0-5.0) Basophils % 0.2 % (0.0-0.2) Basophils # 0.0 10^3/uL (0.0-0.1) Sodium Level 136 mmol/L (132-145) Potassium Level 4.4 mmol/L (3.6-5.2) Chloride Level 100.0 mmol/L (96-109) Carbon Dioxide Level 25.1 mmol/L (20.0-32) Anion Gap 15.3 Blood Urea Nitrogen 32 mg/dL (7-18) H Creatinine 1.80 mg/dL (0.59-1.40) H Estimated GFR () 43.9 (>/=60) BUN/Creatinine Ratio 17.0 Glucose Level 172 mg/dL (70-110) H Calcium Level 8.5 mg/dL (8.4-10.5) Total Bilirubin 0.9 mg/dL (0.2-1.0) Aspartate Amino Transferase (AST) 24 U/L (0-35) Alanine Aminotransferase (ALT) 42 U/L (12-78) Alkaline Phosphatase 82 U/L (50-136) Troponin I < 0.02 ng/mL (0.00-0.05) Pro-B-Type Natriuretic Peptide 4896 pg/mL (0-450) H Total Protein 7.7 g/dL (6.4-8.2) Albumin 3.3 g/dL (3.4-5.0) L Globulin 4.4 Urine Collection Type VOID Urine Color YELLOW (YELLOW) Urine Appearance SLIGHTLY HAZY (CLEAR) H Urine Bilirubin NEGATIVE MG/DL (NEGATIVE) Urine Ketones 15 mg/dL (NEGATIVE) H Urine Specific [place] 1.020 (1.005-1.035) Urine pH 6 (5.0-6.0) Urine Protein 30 mg/dL (NEGATIVE) H Urine Urobilinogen NORMAL (NEGATIVE) Urine Nitrate NEGATIVE (NEGATAIVE) Urine Leukocyte Esterase NEGATIVE (NEGATIVE) Urine Blood 250 4+ (NEGATIVE) H Urine RBC 5-10 RBC/HPF (NONE SEEN) H Urine WBC 0-2 WBC/HPF (0-2) Urine Squamous Epithelial Cells FEW #/HPF (FEW) Urine Bacteria NONE SEEN (NONE SEEN) Urine Glucose NORMAL (NEGATIVE) Progress Progress Pt was able to get up and ambulate with a walker in hallway without assistance. Got back into bed bby himself. I spoke with pt and his son-in-law, and they both would like to go home vs stay in the hospital for observation. Will give Rx Tamiflu, needs f/u with PMD. Told to return of symptoms worsen. Departure Time of Disposition: 13:55 Disposition: 01 HOME, SELF-CARE Impression: Primary Impression: Influenza A Condition: Stable Referrals: HAN CRANE TRUCK BENCH MECHANIC (PCP) PRIMARY CARE PROVIDER Additional Instructions: f/u PMD, return if worse. Duration or Time Spent with Pa: 25 ERICK PARRA DO Feb 22, 2019 13:08
[2019-02-22 13:16] LABS: APPEARANCE,URINE SLIGHTLY HAZY (CLEAR); UA COLOR YELLOW (YELLOW)
[2019-02-22 14:17] VITALS: BP 134/79
[2019-02-22 14:27] LABS: BAND NEUTROPHILS 2 % (2-6); BASOPHIL 1 % (0-2); LYMPHOCYTE 5 % (25-36); MONOCYTE 3 % (3-9); SEGMENTED NEUTROPHILS 88 % (31-76)
== END 2019-02-22 14:16 | disposition home or self-care (01) ==
LOC: ER 11:09
DX: J10.1 Influenza due to other identified influenza virus with other respiratory manifestations (principal); I50.9 Heart failure, unspecified; Z79.82 Long term (current) use of aspirin; Z79.899 Other long term (current) drug therapy; W06.XXXA Fall from bed, initial encounter; Y93.89 Activity, other specified; Y92.098 Other place in other non-institutional residence as the place of occurrence of the external cause; Y99.8 Other external cause status
CPT/HCPCS: 36415; 71045; 80053; 81000; 83880; 84484; 85025; 87040; 87804; 93005; 99285

== ENCOUNTER → 2019-06-25 | Outpatient (CLI) | payer MEDICARE, BC | END | disposition home or self-care (01) | LOC: NPLAB 13:38 | PROVIDERS: ATTEND Family Medicine | DX: I48.91 Unspecified atrial fibrillation (principal) | CPT/HCPCS: 36415; 85610 ==

== ENCOUNTER → 2019-07-09 | Outpatient (CLI) | payer MEDICARE, BC | END | disposition home or self-care (01) | LOC: LAB 14:15 | PROVIDERS: ATTEND Family Medicine | DX: I48.91 Unspecified atrial fibrillation (principal) | CPT/HCPCS: 36415; 85610 ==

== ENCOUNTER 2019-07-10 21:12 | Emergency (ER) | payer MEDICARE, BC ==
[~2019-07-10] VITALS: Ht 180.3 cm; Wt 107.0 kg
--- NOTE | 2019-07-10 21:12 | ER.PDOC ---
General Chief Complaint: Requesting Medical Care Stated Complaint: WEAKNESS/FALL Time seen by MD: 21:05 Source: patient, EMS Exam Limitations: no limitations History of Present Illness Initial Comments Patient got up to go to the BR and missed the stool when he went to sit down. He grabbed the rail and lowered himself to the ground. He was unable to get back up for 5-6 hours. Timing/Prior Episodes: no prior history Symptoms Prior to Episode: none Precipitating Factors: sitting Loss of Consciousness: No Loss of Consciousness Location of Injury: RLE (c/o mild pain right hip) Allergies: Coded Allergies: No Known Drug Allergies (Verified Allergy, Mild, 12/10/15) Home Meds Reported Medications Cholecalciferol (Vitamin D3) (VITAMIN D) 2,000 Unit Capsule, 1 CAP PO DAILY, #30 CAP 3 Refills 12/12/16 Sacubitril/Valsartan (Entresto 24 mg-26 mg Tablet) 1 Each Tablet, 1 EACH PO BID, TABLET 12/12/16 Terazosin Hcl (TERAZOSIN HCL) 5 Mg Capsule, 5 MG PO HS, CAPSULE 10/11/16 Aspirin (ASPIRIN) 325 Mg Tablet, 1 TAB PO DAILY, #30 TAB 5 Refills 02/25/16 Furosemide (FUROSEMIDE) 40 Mg Tablet, 1 TAB PO DAILY, #30 TAB 5 Refills 02/25/16 Glyburide (GLYBURIDE) 2.5 Mg Tablet, 1 TAB PO DAILY, #30 TAB 5 Refills 02/25/16 Multivitamin (Multi Vitamin Daily) 1 Each Tablet, 1 EACH PO DAILY, TABLET 12/11/15 Trazodone Hcl (TRAZODONE HCL) 50 Mg Tablet, 1 TAB PO HS, TAB 12/11/15 Potassium Chloride (K-TAB) 10 Meq Tablet.er, 10 MEQ PO DAILY 12/28/14 Metformin Hcl (METFORMIN HCL) 1,000 Mg Tablet, 1 TAB PO BID, TAB 12/26/14 Carvedilol (CARVEDILOL) 6.25 Mg Tablet, 1 TAB PO BID, TAB 12/26/14 Review of Systems Constitutional: no symptoms reported EENTM: no symptoms reported Respiratory: no symptoms reported Cardiovascular: no symptoms reported Gastrointestinal: no symptoms reported Musculoskeletal: see HPI Skin: no symptoms reported Physical Exam General Appearance: No Apparent Distress, WD/WN Cardiovascular/Respiratory: Regular Rate, Rhythm, Normal Breath Sounds, No Respiratory Distress Gastrointestinal: Normal Bowel Sounds, Non Tender Extremities: Other (ttp right hip) Motor/Sensory: No Motor Deficit Skin: Normal Color, Warm/Dry Results/Orders Results/Orders Orders - ELMER HUNG DO Cbc With Auto Diff (07/10/19 21:13) Comprehensive Metabolic Panel (07/10/19 21:13) Creatine Kinase (07/10/19 21:13) Creatine Kinase Mb (07/10/19 21:13) Troponin I (07/10/19 21:13) Ekg-Routine (07/10/19 21:13) Xr Hip Rt 2v W/Pelvis (07/10/19 21:13) Xr Chest 1v (07/10/19 21:13) PT (07/10/19 21:13) Partial Thromboplastin Time. (07/10/19 21:32) Urinalysis (07/10/19 22:01) 0.9 % Sodium Chloride (Ns 1000ml) (07/10/19 22:30) 0.9 % Sodium Chloride (Ns 1000ml) (07/10/19 22:30) Urine Culture (07/10/19 22:20) Ceftriaxone Sodium (Rocephin) (07/10/19 22:37) 0.9 % Sodium Chloride (Ns 100ml) (07/10/19 22:37) Ceftriaxone Sodium (Rocephin) (07/10/19 22:38) Acetaminophen (Tylenol) (07/10/19 22:47) Acetaminophen (Tylenol) (07/10/19 22:47) Vital Signs Date Time Temp Pulse Resp B/P (MAP) Pulse Ox O2 Delivery O2 Flow Rate FiO2 07/10/19 21:22 98.0 83 18 96 Room Air 07/10/19 21:14 98.0 83 18 96 07/10/19 21:14 98.0 83 18 Administered Medications Medications (Trade) Dose Ordered Sig/Lyndon Route PRN Reason Start Time Stop Time Status Last Admin Dose Admin Acetaminophen (Tylenol) 1,000 mg STAT STAT PO 07/10/19 22:47 07/10/19 22:48 DC 07/10/19 22:53 1,000 MG Ceftriaxone Sodium 1 gm/ Sodium Chloride 100 ml @ 100 mls/hr STAT STAT IV 07/10/19 22:37 07/10/19 23:36 UNV 07/10/19 22:45 100 MLS/HR Sodium Chloride 1,000 ml @ 0 mls/hr Q0M STAT IV 07/10/19 22:30 07/10/19 22:31 DC 07/10/19 22:38 0 MLS/HR Laboratory Tests Test 07/10/19 21:32 07/10/19 21:44 07/10/19 22:20 White Blood Count 18.7 10^3/uL (4.5-11.0) H Red Blood Count 4.16 10^6/uL (4.50-5.90) L Hemoglobin 13.3 g/dL (13.9-16.3) L Hematocrit 38.6 % (37.0-53.0) Mean Corpuscular Volume 92.8 fL (78-100) Mean Corpuscular Hemoglobin 32.0 pg (26-34) Mean Corpuscular Hemoglobin Concent 34.5 g/dL (33-36.5) Red Cell Distribution Width 12.6 % (11.5-14.5) Platelet Count 194 10^3/uL (150-400) Mean Platelet Volume 8.8 fL (7.8-11.0) Neutrophils (%) (Auto) 86.6 % (41.0-85.0) H Lymphocytes (%) (Auto) 5.0 % (24.0-44.0) *L Monocytes (%) (Auto) 8.0 % (5.0-12.0) Neutrophils # (Auto) 16.2 10^3/uL (1.8-7.7) H Lymphocytes # (Auto) 0.94 10^3/uL1 (1.0-4.8) L Monocytes # (Auto) 1.5 10^3/uL (0.3-0.8) H Absolute Immature Granulocyte (auto 0.04 10^3 u/L (0-2) Absolute Eosinophils (auto) 0.0 10^3/uL (0.0-0.2) Immature Granulocytes % 0.20 % (0.00-0.50) Eosinophils % 0.1 % (0.0-5.0) Basophils % 0.1 % (0.0-0.2) Basophils # 0.0 10^3/uL (0.0-0.1) Prothrombin Time 30.7 SEC (9.3-11.3) H Prothrombin Time INR (Non-Therap) 3.0 Activated Partial Thromboplast Time 43.3 SEC (24.67-30.72) Sodium Level 134 mmol/L (132-145) Potassium Level 4.4 mmol/L (3.6-5.2) Chloride Level 100.0 mmol/L (96-109) Carbon Dioxide Level 23.5 mmol/L (20.0-32) Anion Gap 14.9 Blood Urea Nitrogen 27 mg/dL (7-18) H Creatinine 2.04 mg/dL (0.59-1.40) *H Estimated GFR () 38.0 (>/=60) Est GFR (CKD-EPI)(Non-Afr [place]) 31.4 (>/=60) BUN/Creatinine Ratio 13.0 Glucose Level 199 mg/dL (70-110) H Calcium Level 8.4 mg/dL (8.4-10.5) Total Bilirubin 1.0 mg/dL (0.2-1.0) Aspartate Amino Transferase (AST) 17 U/L (0-35) Alanine Aminotransferase (ALT) 21 U/L (12-78) Alkaline Phosphatase 51 U/L (50-136) Total Creatine Kinase 127 U/L (39-308) Creatine Kinase MB 1.1 ng/mL (0.5-3.6) Troponin I < 0.02 ng/mL (0.00-0.05) Total Protein 7.2 g/dL (6.4-8.2) Albumin 3.3 g/dL (3.4-5.0) L Globulin 3.9 Differential Total Cells Counted 100 #CELLS Segmented Neutrophils 92 % (31-76) H Band Neutrophils 2 % (2-6) Lymphocytes 4 % (25-36) L Monocytes 2 % (3-9) L Platelet Estimate ADEQUATE Platelet Morphology NORMAL Blood Morphology Comment NORMAL MORPHOLOGY Urine Collection Type VOID Urine Color BROWN (YELLOW) H Urine Appearance CLOUDY (CLEAR) H Urine Bilirubin NEGATIVE MG/DL (NEGATIVE) Urine Ketones MODERATE (NEGATIVE) H Urine Specific [place] 1.015 (1.005-1.035) Urine pH 7 (5.0-6.0) Urine Protein 1+ (NEGATIVE) H Urine Urobilinogen NEGATIVE (NEGATIVE) Urine Nitrate POSITIVE (NEGATAIVE) H Urine Leukocyte Esterase 500/uL 2+ (NEGATIVE) Urine Blood 250 4+ (NEGATIVE) H Urine RBC TNTC RBC/HPF (NONE SEEN) H Urine WBC TNTC WBC/HPF (0-2) H Urine Squamous Epithelial Cells NONE SEEN #/HPF (FEW) Urine Bacteria MODERATE (NONE SEEN) H Urine Glucose NORMAL (NEGATIVE) EKG/XRAY/CT/US XRAY: chest (normal) XRAY Comments: hip normal Departure Time of Disposition: 23:07 Disposition: 01 HOME, SELF-CARE Impression: Primary Impression: Leukocytosis Additional Impressions: CRI (chronic renal insufficiency) Dehydration UTI (urinary tract infection) Condition: Improved Patient Instructions: Chronic Renal Insufficiency, Dehydration, Adult, Leukocytosis, Urinary Tract Infection Additional Instructions: Drink plenty of water in the coming days. Follow up with your doctor to reasse ss kidney function soon. Take antibiotics until all gone. Return to ER if you have any emergent concerns. Duration or Time Spent with Pa: 25 min Problem Qualifiers Primary Impression: Leukocytosis Leukocytosis type: unspecified Qualified Codes: D72.829 - Elevated white blood cell count, unspecified Additional Impressions: CRI (chronic renal insufficiency) Chronic kidney disease stage: unspecified stage Qualified Codes: N18.9 - Chronic kidney disease, unspecified UTI (urinary tract infection) Urinary tract infection type: acute cystitis Hematuria presence: with hematuria Qualified Codes: N30.01 - Acute cystitis with hematuria ELMER HUNG DO July 10, 2019 21:12
[2019-07-10 21:14] VITALS: BP 119/65
[2019-07-10 21:22] VITALS: BP 119/65
--- NOTE | 2019-07-10 21:25 | NUR ---
ARRIVAL PT ARRIVED VIA EMS STRETCHER TO ER 1 WITH C/O GENERALIZED WEAKNESS. PT STATES WAS IN BATHROOM AND STARTED GETTING "WEAKING IN THE LEGS". PT STATED HE "GRABBED THE BAR AND SLID DOWN THE WALL. I DIDN'T FALL. I JUST GOT WEAK AND COULDN'T STAND." PT DENIES FALLING AND DENIES ANY INJURIES. STATES "I JUST DIDN'T HAVE THE STRENGTH TO STAND BACK UP." PT IS IN NO ACUTE DISTRESS. EDP IN ROOM.
--- NOTE | 2019-07-10 21:26 | PCM.EKG ---
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
[2019-07-10 21:43] LABS: BASOPHIL % 0.1 % (0.0-0.2); EOSINOPHIL % 0.1 % (0.0-5.0); LYMPHOCYTES # 0.94 10^3/uL1 (1.0-4.8); MONOCYTES # 1.5 10^3/uL (0.3-0.8); NEUTROPHIL # 16.2 10^3/uL (1.8-7.7); NEUTROPHILS % 86.6 % (41.0-85.0); PLATELET COUNT 194 10^3/uL (150-400); RED CELL DISTRIBUTION WIDTH 12.6 % (11.5-14.5)
--- NOTE | 2019-07-10 22:00 | DIREP ---
PROCEDURE:CHEST 1 VIEW COMPARISON:[facility], CR, XRAY CHEST SINGLE VW, 02/22/2019, 11:44 AM. INDICATIONS:fall FINDINGS: LUNGS/PLEURA:No significant pulmonary parenchymal abnormalities. No effusions. VASCULATURE:Normal. Unremarkable pulmonary vasculature. CARDIAC:A left-sided pacemaker is again seen with previous sternotomy changes and stable cardiomegaly. MEDIASTINUM:Normal. No visible mass or adenopathy. BONES:Normal. No fracture or visible bony lesion. OTHER:Negative. CONCLUSION:Left-sided pacemaker and previous sternotomy changes with mild cardiomegaly without acute cardiopulmonary disease. Dictated by: True Lucas M.D. on 07/10/2019 at 09:58 PM
--- NOTE | 2019-07-10 22:02 | DIREP ---
PROCEDURE:XRAY HIP MIN 2VW-RT with additional AP of the pelvis COMPARISON:None. INDICATIONS:fall injury FINDINGS: BONES:No fracture is seen. JOINTS:Mild degenerative changes are seen in both hips. SOFT TISSUES:Normal. OTHER:No additional findings. CONCLUSION:Mild degenerative changes are seen in both hips. No fracture is seen. Dictated by: True Lucas M.D. on 07/10/2019 at 09:59 PM
[2019-07-10 22:04] LABS: ALANINE AMINOTRANSFERASE(ML) 21 U/L (12-78); ALKALINE PHOSPHATASE 51 U/L (50-136); ASPARTATE AMINO TRANSFERASE 17 U/L (0-35); CALCIUM 8.4 mg/dL (8.4-10.5); CARBON DIOXIDE 23.5 mmol/L (20.0-32); GLUCOSE 199 mg/dL (70-110)
--- NOTE | 2019-07-10 22:27 | NUR ---
UA URINE COLLECTED AND TAKEN TO LAB.
[2019-07-10] MEDS ORDERED: NS 1000ML 1,000 ML STA (22:30)
[2019-07-10] MEDS ORDERED: NS 1000ML 1,000 ML ONE (22:30)
[2019-07-10 22:33] LABS: APPEARANCE,URINE CLOUDY (CLEAR); BILIRUBIN,URINE NEGATIVE (NEGATIVE); UA COLOR BROWN (YELLOW)
[2019-07-10 22:34] LABS: UROBILINOGEN,URINE NEGATIVE (NEGATIVE)
[2019-07-10] MEDS ORDERED: ROCEPHIN 1 GM in NS 100ML 100 ML IV STA (22:37)
[2019-07-10] MEDS ORDERED: NS 100ML 100 ML IV ONE (22:37)
[2019-07-10] MEDS ORDERED: ROCEPHIN ONE (22:38)
[2019-07-10 22:46] LABS: BAND NEUTROPHILS 2 % (2-6); LYMPHOCYTE 4 % (25-36); MONOCYTE 2 % (3-9); SEGMENTED NEUTROPHILS 92 % (31-76)
[2019-07-10] MEDS ORDERED: TYLENOL PO STA (22:47)
[2019-07-10] MEDS ORDERED: TYLENOL PO ONE (22:47)
[2019-07-10 23:12] VITALS: BP 129/72
--- NOTE | 2019-07-11 00:03 | NUR ---
IV removed with no complications. Tip intact
== END 2019-07-11 01:00 | disposition home or self-care (01) ==
LOC: EDBD 21:12 → ER 21:12
DX: N30.01 Acute cystitis with hematuria (principal); N18.9 Chronic kidney disease, unspecified; E86.0 Dehydration; M25.551 Pain in right hip; Z79.82 Long term (current) use of aspirin; Z79.899 Other long term (current) drug therapy
CPT/HCPCS: 36415; 71045; 73502; 80053; 81000; 82550; 82553; 84484; 85025; 85610; 85730; 87077; 87086; 87186; 93005; 96374; 99285; J0696 ×2; J7030; J7050 ×2

== ENCOUNTER → 2019-09-23 | Outpatient (CLI) | payer MEDICARE, BC ==
[~2019-09-23] MED LIST changes: -ASPI-484 PO; +ASPI-485 PO; -ENAL10TA PO; +ENAL10TA8 PO; -ENAL20TA PO; +ENAL20TA9 PO
== END | disposition home or self-care (01) ==
LOC: LAB 14:20
PROVIDERS: ATTEND Nurse Practitioner Family
DX: Z79.01 Long term (current) use of anticoagulants (principal)
CPT/HCPCS: 36415; 85610

== ENCOUNTER → 2019-12-24 | Outpatient (CLI) | payer MEDICARE, BC | END | disposition home or self-care (01) | LOC: NPLAB 11:22 | PROVIDERS: ATTEND Internal Medicine Cardiovascular Disease | DX: I48.21 Permanent atrial fibrillation (principal) | CPT/HCPCS: 36415; 85610 ==

== ENCOUNTER → 2020-04-06 | Outpatient (CLI) | payer MEDICARE, BC | END | disposition home or self-care (01) | LOC: NPLAB 11:15 | PROVIDERS: ATTEND Family Medicine | DX: I48.21 Permanent atrial fibrillation (principal) | CPT/HCPCS: 36415; 85610 ==